=== PATIENT | male | born 1955 | race Hispanic/Latino ===

== ENCOUNTER 2018-03-31 03:50 | Emergency (ER) | payer BC ==
[2018-03-31] MEDS ORDERED: TDAP Vaccine 0.5 mL Syr IM ONE (04:24)
[2018-03-31] MEDS ORDERED: Amoxicillin-Clav 875-125 mg Tab PO STA (04:25)
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
[2018-03-31 06:31] VITALS: BMI 24.3
[2018-03-31 06:56] VITALS: BP 155/82; PULSE 89; RESP 18; TEMP 98.2; O2SAT 98
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
== END 2018-03-31 06:50 | disposition home or self-care (01) ==
LOC: ED 03:50
DX: S02.31XA Fracture of orbital floor, right side, initial encounter for closed fracture (principal); Y04.0XXA Assault by unarmed brawl or fight, initial encounter; Y92.009 Unspecified place in unspecified non-institutional (private) residence as the place of occurrence of the external cause; I10 Essential (primary) hypertension; E11.9 Type 2 diabetes mellitus without complications; E78.5 Hyperlipidemia, unspecified; I25.10 Atherosclerotic heart disease of native coronary artery without angina pectoris; Z23 Encounter for immunization

== ENCOUNTER 2018-10-29 17:19 | Inpatient (IN) | payer BC ==
[2018-10-29 17:41] VITALS: BMI 27.3
[2018-10-29] MEDS ORDERED: Sodium Chloride 0.9% 1,000 ML IV STA (18:03)
--- NOTE | 2018-10-29 18:13 | ED PDOC ---
Arrival/HPI - General Chief Complaint: Abdominal Pain Time Seen by Provider: 10/29/18 17:49 Historian: Patient - History of Present Illness Narrative History of Present Illness (Text): 10/29/18 18:08 A 63 year old male presents to the emergency department with a complaint of left abdominal pain radiating to his side. Patient reports associated back pressure, nausea, and vomiting. He reports pain is present when moving or just laying still. He reports trying to get an appointment with his PMD, but could not get an available time. The patient denies trauma, injury, fevers, chills, headache, dizziness, chest pain, shortness of breath, dyspnea on exertion, cough, diarrhea, neck pain, urinary/bowel changes, or any other complaint. PMD: Dr. Barraza/ Dr. Estrada Time/Duration: Other (Today) Symptom Onset: Sudden Symptom Course: Unchanged Activities at Onset: Rest, Light Context: Home Past Medical History - Provider Review Nursing Documentation Reviewed: Yes - Infectious Disease Hx of Infectious Diseases: None - Cardiac Hx Hypertension: Yes Hx Pacemaker: No (defib) - Neurological Hx Paralysis: No - Endocrine/Metabolic Hx Diabetes Mellitus Type 2: Yes - Hematological/Oncological Hx Blood Transfusions: No Hx Blood Transfusion Reaction: No - Musculoskeletal/Rheumatological Hx Musculoskeletal Disorders: No - Psychiatric Hx Emotional Abuse: No Hx Physical Abuse: No Hx Substance Use: No - Surgical History Hx Cardiac Catheterization: Yes Hx Coronary Stent: Yes (x1) Other/Comment: pacemaker placement - Anesthesia Hx Anesthesia Reactions: No Hx Malignant Hyperthermia: No - Suicidal Assessment Feels Threatened In Home Enviroment: No Family/Social History - Physician Review Nursing Documentation Reviewed: Yes Family/Social History: No Known Family HX Smoking Status: Never Smoked Hx Alcohol Use: Yes (SOCIAL) Frequency of alcohol use: Socially Hx Substance Use: No Allergies/Home Meds Allergies/Adverse Reactions: Allergies No Known Allergies Allergy (Verified 10/29/18 17:41) Home Medications: Home Meds Medication Instructions Recorded Confirmed Lisinopril [Zestril] 40 mg PO 10/29/18 amLODIPine [Norvasc] 5 mg 10/29/18 Review of Systems - Physician Review All systems were reviewed & negative as marked: Yes - Review of Systems Constitutional: absent: Fevers Respiratory: absent: SOB, Cough Cardiovascular: absent: Chest Pain, SINGH Gastrointestinal: Abdominal Pain, Vomiting. absent: Stool Changes, Diarrhea Genitourinary Male: absent: Urinary Output Changes Musculoskeletal: Back Pain. absent: Neck Pain Neurological: absent: Headache, Dizziness Physical Exam Vital Signs Reviewed: Yes Vital Signs Pulse Resp BP Pulse Ox 10/29/18 17:41 60 18 157/91 H 98 Blood Pressure: Hypertensive Pulse: Regular Respiratory Rate: Normal Appearance: Positive for: Well-Appearing, Non-Toxic, Comfortable Pain Distress: None Mental Status: Positive for: Alert and Oriented X 3 - Systems Exam Head: Present: Atraumatic, Normocephalic Pupils: Present: PERRL Extroacular Muscles: Present: EOMI Conjunctiva: Present: Normal Mouth: Present: Moist Mucous Membranes Neck: Present: Normal Range of Motion Respiratory/Chest: Present: Clear to Auscultation, Good Air Exchange. No: Respiratory Distress, Accessory Muscle Use Cardiovascular: Present: Regular Rate and Rhythm, Normal S1, S2. No: Murmurs Abdomen: Present: Tenderness (Right upper quadrant abdominal pain. ). No: Distention, Peritoneal Signs Back: Present: Normal Inspection Upper Extremity: Present: Normal Inspection. No: Cyanosis, Edema Lower Extremity: Present: Normal Inspection. No: Edema Neurological: Present: GCS=15, CN II-XII Intact, Speech Normal Skin: Present: Warm, Dry, Normal Color. No: Rashes Psychiatric: Present: Alert, Oriented x 3, Normal Insight, Normal Concentration Medical Decision Making ED Course and Treatment: 10/29/18 18:14 Impression: A 63 year old female presents to the emergency department with a complaint of left sided abdominal pain radiating to his side with associated nausea and vomiting. Plan: -- Abdomen/Pelvis CT -- EKG -- Chest X-Ray -- Labs -- Urinalysis -- Urine Culture -- Pepcid, Toradol, Zofran, and IV Fluids -- Reassess and disposition Prior Visits: Notes and results from previous visits were reviewed. Progress Notes: EKG: Ordered, reviewed, and independently interpreted the EKG. Rate : 60 BPM Rhythm : Paced EXAM: CT Abdomen with IV contrast Electronically signed on Oct 29, 2018 7:20:34 PM EST by: Lonnie Reynoso M.D., Certified by [facility], Diagnostic Radiology IMPRESSION: Cardiac pacer pacing wires. Approximate 1.2 x 0.7 cm obstructing calculus left proximal ureter with moderate hydronephrosis of the left kidney and left perinephric stranding. Moderately enlarged prostate gland. Urologic consultation recommended. 10/29/18 19:53: Accepted to Dr. King's service. Requests Dr. Mata for urology consult. - Lab Interpretations I have reviewed the lab results: Yes - RAD Interpretation Radiology Orders: 10/29/18 18:04 ABD & PELVIS IV CONTRAST ONLY [CT] Stat - EKG Interpretation Interpreted by ED Physician: Yes Type: 12 lead EKG - Medication Orders Current Medication Orders: Famotidine (Pepcid) 20 mg IVP STAT STA Stop: 10/29/18 18:04 Sodium Chloride (Sodium Chloride 0.9%) 1,000 mls @ 100 mls/hr IV .Q10H STA Stop: 10/30/18 04:02 Ketorolac Tromethamine (Toradol) 30 mg IVP STAT STA Stop: 10/29/18 18:04 Ondansetron HCl (Zofran Inj) 4 mg IVP STAT STA Stop: 10/29/18 18:04 - Scribe Statement The provider has reviewed the documentation as recorded by the Scribe Idalia Longoria Provider Scribe Attestation: All medical record entries made by the Scribe were at my direction and personally dictated by me. I have reviewed the chart and agree that the record accurately reflects my personal performance of the history, physical exam, medical decision making, and the department course for this patient. I have also personally directed, reviewed, and agree with the discharge instructions and disposition. Disposition/Present on Arrival - Present on Arrival Any Indicators Present on Arrival: No History of DVT/PE: No History of Uncontrolled Diabetes: No Urinary Catheter: No History of Decub. Ulcer: No History Surgical Site Infection Following: None - Disposition Have Diagnosis and Disposition been Completed?: Yes Diagnosis: Urinary tract obstruction by kidney stone Disposition: HOSPITALIZED Disposition Time: 19:40 Condition: FAIR Forms: [employer] ([place])
[2018-10-29 18:33] LABS: BASO # 0.02 K/mm3 (0.0-2.0); BASO % 0.2 % (0.0-3.0); EOS % 0.2 % (1.5-5.0); HEMOGLOBIN 14.2 g/dL (14.0-18.0); LYMPH # 0.6 (1.2-3.4); LYMPH % 5.9 % (22.0-35.0); MEAN CELL VOLUME 87.7 fl (80.0-105.0); MEAN CORPUSCULAR HEMOGLOBIN 31.1 pg (25.0-35.0); MEAN CORPUSCULAR HGB CONC 35.5 g/dl (31.0-37.0); MEAN PLATELET VOLUME 10.2 fl (7.0-11.0); MONO # 0.5 (0.1-0.6); MONO % 4.8 % (1.0-6.0); RBC 4.56 10^6/uL (3.5-6.1); RED CELL DISTRIBUTION WIDTH 14.2 % (11.5-14.5); WHITE BLOOD COUNT 10.6 10^3/uL (4.5-11.0)
[2018-10-29 18:38] LABS: ALB/GLOB RATIO 1.6 (1.1-1.8); ALT/SGPT 32 U/L (7-56); AST/SGOT 28 U/L (17-59); BLOOD UREA NITROGEN 14 mg/dL (7-21); CALCIUM 9.1 mg/dL (8.4-10.5); GFR NON-AFRICAN AMERICAN > 60; LIPASE 68 U/L (23-300)
[2018-10-29] MEDS ORDERED: Iohexol 350 MG/100 ML VIAL ONE (18:48)
[2018-10-29 18:50] LABS: TROPONIN I < 0.01 ng/mL
[2018-10-29 19:43] LABS: PH,URINE 7.5 (4.7-8.0); URINE BILIRUBIN NEGATIVE (NEGATIVE); URINE BLOOD SMALL (NEGATIVE); URINE GLUCOSE (UA) 100 mg/dL (NEGATIVE); URINE LEUKOCYTE ESTERASE NEGATIVE Leu/uL (NEGATIVE); URINE PROTEIN 30 mg/dL (<30 mg/dL); URINE UROBILINOGEN 0.2 E.U./dL (<1 E.U./dL)
[2018-10-29] MEDS ORDERED: cefTRIAXone 1 gm 1 GM/100 ML BAG IVPB STA (19:57)
[2018-10-29] MEDS ORDERED: Morphine 2 mg/ml ISec IVP STA (19:57)
[2018-10-29 20:00] LABS: URINE APPEARANCE CLEAR (CLEAR); URINE COLOR LIGHT YELLOW (YELLOW)
[2018-10-29 20:27] LABS: URINE RBC 15 - 20 /hpf (0-2)
--- NOTE | 2018-10-29 23:09 | CARD ---
APPROVED REPORT Date of service: 10/29/2018 EKG Measurement Heart [id number] <Conclusion> AV sequential or dual chamber electronic pacemaker
[2018-10-30] MEDS ORDERED: Morphine 2 mg/ml ISec IVP STA (04:56)
--- NOTE | 2018-10-30 08:39 | CP.PCM.HP ---
<Xiomy Collins - Last Filed: 10/30/18 10:30> History of Present Illness - History of Present Illness History of Present Illness: please note patient's medications have not been reconciled on chart. Patient does not know home medications. Patient's Pharmacy "[facility]" is closed on weekends and unreachable Patient's family member Belinda Gifford was contacted however phone rang through Will speak to Belinda when she comes to see patient and reconcile home meds 63yo male PMHx CAD s/p 1 stent, defibrillator, HTN, HLD, DM2, prior tobacco use quit in 2012 presents with left sided abdominal pain for 2-3 days. Patient reports he started no notice having a sharp stabbing pain that was intermitted on his left abdomen that radiated to his left flank and back at times. At worst he reported the pain was 10/10 in intensity. He described the pain in his anterior region as a sharp pain like he had "ran too fast" and the pain in his flank and back a dull pressure. The pain worsened and he had associated nausea and one episode of nonbilious nonbloody emesis. Patient reported lying down made the pain worse at times and walking around helped. He denied any changes in urination and denied any dysura, hematuria, foul odor. On ROS patient denied any feevr, chills, ehadache, dizziness, chest pain, palpitations, SOB, cough, bowel/bladder complaints, pain/swelling in his legs bilaterally. Patient reports he usually drinks a lot of water but in the past week he had not been doing so. PMHx: CAD s/p 1 stent, defibrillator, HTN, HLD, DM2, prior tobacco use PSurgHx: L eye laser Meds: pending reconciliation ALL: NKDA FamHx: noncontributory SocHx: prior tobacco use quit 2012, social EtOH, denies drug use; works as an licensed journeyman electrician PMD: Dr. Barraza/ Dr. Estrada Pharm: [facility] Present on Admission - Present on Admission Any Indicators Present on Admission: No Review of Systems - Review of Systems All systems: reviewed and no additional remarkable complaints except Review of Systems: as per HPI Past Patient History - Infectious Disease Hx of Infectious Diseases: None - Past Social History Smoking Status: Never Smoked - CARDIAC Hx Hypertension: Yes Hx Pacemaker: No (defib) - NEUROLOGICAL Hx Paralysis: No - ENDOCRINE/METABOLIC Hx Diabetes Mellitus Type 2: Yes - HEMATOLOGICAL/ONCOLOGICAL Hx Blood Transfusions: No Hx Blood Transfusion Reaction: No - MUSCULOSKELETAL/RHEUMATOLOGICAL Hx Musculoskeletal Disorders: No Hx Falls: No - PSYCHIATRIC Hx Emotional Abuse: No Hx Physical Abuse: No - SURGICAL HISTORY Hx Cardiac Catheterization: Yes Hx Coronary Stent: Yes (x1) Other/Comment: pacemaker placement - ANESTHESIA Hx Anesthesia Reactions: No Hx Malignant Hyperthermia: No Meds Allergies/Adverse Reactions: Allergies Allergy/AdvReac Type Severity Reaction Status Date / Time No Known Allergies Allergy Verified 10/29/18 17:41 Physical Exam - Constitutional Appears: Non-toxic, No Acute Distress - Head Exam Head Exam: ATRAUMATIC, NORMAL INSPECTION, NORMOCEPHALIC - Eye Exam Eye Exam: EOMI, Normal appearance, PERRL. absent: Conjunctival injection, Scleral icterus Pupil Exam: NORMAL ACCOMODATION - ENT Exam ENT Exam: Mucous Membranes Moist - Neck Exam Neck exam: Positive for: Full Rom, Normal Inspection. Negative for: Lymphadenopathy - Respiratory Exam Respiratory Exam: Clear to Auscultation Bilateral, NORMAL BREATHING PATTERN. ab sent: Accessory Muscle Use, Rales, Rhonchi, Wheezes, Respiratory Distress - Cardiovascular Exam Cardiovascular Exam: REGULAR RHYTHM, +S1, +S2 - GI/Abdominal Exam GI & Abdominal Exam: Normal Bowel Sounds, Soft, Tenderness (L upper ). absent: Distended, Firm, Guarding, Rigid - Rectal Exam Rectal Exam: Deferred - Extremities Exam Extremities exam: Positive for: normal capillary refill, normal inspection, pedal pulses present. Negative for: pedal edema - Back Exam Back exam: CVA tenderness (L), NORMAL INSPECTION. absent: rash noted - Neurological Exam Neurological exam: Alert, CN II-XII Intact, Normal Gait, Oriented x3 - Psychiatric Exam Psychiatric exam: Normal Affect, Normal Mood - Skin Skin Exam: Dry, Intact, Normal Color, Warm Results - Vital Signs Recent Vital Signs: Last Vital Signs Temp 99 F 10/30/18 07:59 Pulse 67 10/30/18 07:59 Resp 20 10/30/18 07:59 BP 142/82 10/30/18 07:59 Pulse Ox 97 10/30/18 07:59 - Labs Result Diagrams: 10/29/18 18:24 10/29/18 18:24 Labs: Laboratory Results - last 24 hr 10/29/18 10/29/18 10/29/18 18:24 18:24 19:38 WBC 10.6 RBC 4.56 Hgb 14.2 Hct 40.0 L MCV 87.7 MCH 31.1 MCHC 35.5 RDW 14.2 Plt Count 172 MPV 10.2 Neut % (Auto) 88.9 H Lymph % (Auto) 5.9 L [place] % (Auto) 4.8 Eos % (Auto) 0.2 L Baso % (Auto) 0.2 Lymph # (Auto) 0.6 L [place] # (Auto) 0.5 Eos # (Auto) 0.0 Baso # (Auto) 0.02 Absolute Neuts (auto) 9.44 H Sodium 138 Potassium 4.1 Chloride 99 Carbon Dioxide 29 Anion Gap 14 BUN 14 Creatinine 0.9 Est GFR ( Amer) > 60 Est GFR (Non-Af Amer) > 60 Random Glucose 177 H Calcium 9.1 Magnesium 1.7 Total Bilirubin 1.0 AST 28 ALT 32 Alkaline Phosphatase 86 Lactate Dehydrogenase 562 Total Creatine Kinase 104 Troponin I < 0.01 Total Protein 8.1 Albumin 5.0 H Globulin 3.1 Albumin/Globulin Ratio 1.6 Lipase 68 Urine Color Light yellow Urine Appearance Clear Urine pH 7.5 Ur Specific [place] 1.020 Urine Protein 30 H Urine Glucose (UA) 100 H Urine Ketones 15 H Urine Blood Small H Urine Nitrate Negative Urine Bilirubin Negative Urine Urobilinogen 0.2 Ur Leukocyte Esterase Negative Urine RBC 15 - 20 H Urine WBC 5 - 10 H Ur Epithelial Cells 6 - 8 H Assessment & Plan - Assessment and Plan (Free Text) Assessment: 1. L sided nephrolithiasis with hydronephrosis 2. CAD s/p 1 stent 3. Defibrillator 4. HTN 5. HLD 6. DM2 7. Pain control 8. Prior tobacco use Plan: Patient admitted to med/surg for further management. CT Abd/pelvis revealed 10 x 7.5mm calculus at the proximmal left ureter resulting in moderate L hydronep hrosis and moderate L peinephric stranding; Mild delayed enhancement of the L renal cortex. Urology Dr. Mata consulted. Overnight patient admitted to some pain which is controlled with morphine. Patient started on Morphine 2q6 for severe pain and Morphien 1q4 for moderate pain. Patient also started on fluids NS@100cc/hr and has been told to strain his urine. Patient has an extensive cardiac history however does not know which medications he is on and pharmacy is unavailable over the weekend. I have reached out to family member Belinda Gifford and am waiting to hear back to reconcile home medications. Will continue patient's Norvasc and Lisinopril at this time for HTN and Lipitor for HLD. I h ave also started patient on RISS low with accuchecks achs due to his history of DM2. Will f/u HgbA1c and Lipid panel in the AM. Pending urine culture and urology reccs. EKG reviewed and CXR ordered for pre-op risk stratification. DVT ppx in place and patient has a HHD with [facility]. Will continue to monitor closely at this time. Discussed with Dr. Christine Collins PGY3 <Rito King S - Last Filed: 10/30/18 11:56> Results - Vital Signs Recent Vital Signs: Last Vital Signs Temp 99 F 10/30/18 07:59 Pulse 67 10/30/18 09:53 Resp 20 10/30/18 07:59 BP 140/82 10/30/18 09:53 Pulse Ox 97 10/30/18 07:59 - Labs Result Diagrams: 10/29/18 18:24 10/29/18 18:24 Labs: Laboratory Results - last 24 hr 10/29/18 10/29/18 10/29/18 18:24 18:24 19:38 WBC 10.6 RBC 4.56 Hgb 14.2 Hct 40.0 L MCV 87.7 MCH 31.1 MCHC 35.5 RDW 14.2 Plt Count 172 MPV 10.2 Neut % (Auto) 88.9 H Lymph % (Auto) 5.9 L [place] % (Auto) 4.8 Eos % (Auto) 0.2 L Baso % (Auto) 0.2 Lymph # (Auto) 0.6 L [place] # (Auto) 0.5 Eos # (Auto) 0.0 Baso # (Auto) 0.02 Absolute Neuts (auto) 9.44 H Sodium 138 Potassium 4.1 Chloride 99 Carbon Dioxide 29 Anion Gap 14 BUN 14 Creatinine 0.9 Est GFR ( Amer) > 60 Est GFR (Non-Af Amer) > 60 POC Glucose (mg/dL) Random Glucose 177 H Calcium 9.1 Magnesium 1.7 Total Bilirubin 1.0 AST 28 ALT 32 Alkaline Phosphatase 86 Lactate Dehydrogenase 562 Total Creatine Kinase 104 Troponin I < 0.01 Total Protein 8.1 Albumin 5.0 H Globulin 3.1 Albumin/Globulin Ratio 1.6 Lipase 68 Urine Color Light yellow Urine Appearance Clear Urine pH 7.5 Ur Specific [place] 1.020 Urine Protein 30 H Urine Glucose (UA) 100 H Urine Ketones 15 H Urine Blood Small H Urine Nitrate Negative Urine Bilirubin Negative Urine Urobilinogen 0.2 Ur Leukocyte Esterase Negative Urine RBC 15 - 20 H Urine WBC 5 - 10 H Ur Epithelial Cells 6 - 8 H 10/30/18 10:59 WBC RBC Hgb Hct MCV MCH MCHC RDW Plt Count MPV Neut % (Auto) Lymph % (Auto) [place] % (Auto) Eos % (Auto) Baso % (Auto) Lymph # (Auto) [place] # (Auto) Eos # (Auto) Baso # (Auto) Absolute Neuts (auto) Sodium Potassium Chloride Carbon Dioxide Anion Gap BUN Creatinine Est GFR ( Amer) Est GFR (Non-Af Amer) POC Glucose (mg/dL) 203 H Random Glucose Calcium Magnesium Total Bilirubin AST ALT Alkaline Phosphatase Lactate Dehydrogenase Total Creatine Kinase Troponin I Total Protein Albumin Globulin Albumin/Globulin Ratio Lipase Urine Color Urine Appearance Urine pH Ur Specific Em[place] Urine Protein Urine Glucose (UA) Urine Ketones Urine Blood Urine Nitrate Urine Bilirubin Urine Urobilinogen Ur Leukocyte Esterase Urine RBC Urine WBC Ur Epithelial Cells Assessment & Plan - Assessment and Plan (Free Text) Plan: Pt seen and examined by me. I have reviewed the note of the medical secretary receptionist and I agree with it. I have discussed the assessment and plan with the resident. I have reviewed the medications and the last labs. The pt has L flank pain due to a renal stone that is 1 x 7.5 cm. It is unlikely to pass and he will need a stent by urology. Dr Mata has been consulted. I explained to the pt the need for the treatment and he understands. He has not had a stone in the past. He is on Morphine for pain which is controlled. He has hydronephrosis and has pe rinephric stranding, most likely with infection. He has been started on IV Abx. He vito be on Lisinopril and Norvasc for HTN. He is on Lipitor for dyslipidemia. He has CAD and DM-2. Will need continued treatment for these conditions. Insulin coverage. UCx are pending. Spoke to him about increasing fluids and decreasing Na intake to help prevent stones.
--- NOTE | 2018-10-30 10:28 | CT ---
Date of service: 10/29/2018 PROCEDURE: CT Abdomen and Pelvis with contrast HISTORY: left-sided abdominal tenderness COMPARISON: No prior similar exam available for comparison. TECHNIQUE: Contrast dose: 96 mL of Omnipaque 350 intravenously. Radiation dose: Total exam DLP = 552.74 mGy-cm. This CT exam was performed using one or more of the following dose reduction techniques: Automated exposure control, adjustment of the mA and/or kV according to patient size, and/or use of iterative reconstruction technique. FINDINGS: LOWER THORAX: The heart is mildly enlarged. Cardiac pacer wires are noted. There is small hiatus hernia. LIVER: The liver is mildly enlarged mildly heterogeneous likely due to mild hepatic steatosis. GALLBLADDER AND BILE DUCTS: Unremarkable. PANCREAS: Unremarkable. No gross lesion or ductal dilatation. SPLEEN: Unremarkable. ADRENALS: Unremarkable. No mass. KIDNEYS AND URETERS: There is moderate left hydronephrosis up to 10 x 7.5 millimeter calculus at the UV junction/proximal left ureter. Moderate left perinephric stranding noted. VASCULATURE: Unremarkable. No aortic aneurysm. No aortic atherosclerotic calcification or mural plaque present. BOWEL: Colonic diverticulosis are noted without evidence of diverticulitis. No obstruction. No gross mural thickening. APPENDIX: Normal appendix. PERITONEUM: Unremarkable. No free fluid. No free air. LYMPH NODES: Unremarkable. No enlarged lymph nodes. BLADDER: Mildly distended urinary bladder demonstrate mild wall thickening. REPRODUCTIVE: Heterogeneous moderately enlarged prostate. BONES: No acute fracture. OTHER FINDINGS: None. IMPRESSION: 10 x 7.5 millimeter calculus at the proximal left ureter resulting in moderate left hydronephrosis and moderate left perinephric stranding. Mild delayed enhancement of the left renal cortex noted. Additional findings as discussed above. Preliminary report was submitted by [facility] contains concordant findings.
[2018-10-30] MEDS: Morphine 2 mg/ml ISec IVP PRN ×4 (10:53→22:09)
[2018-10-30] MEDS: Insulin Lispro (humaLOG) LOW Coverage SC SCH ×3 (11:54→23:00)
[2018-10-30] MEDS: cefTRIAXone 1 gm 1 GM/100 ML BAG IVPB SCH (12:38)
[2018-10-30 13:30] LABS: INR 1.06; PARTIAL THROMBOPLASTIN TIME 32.1 Seconds (26.9-38.3)
--- NOTE | 2018-10-30 14:09 | RAD ---
Date of service: 10/30/2018 HISTORY: preOP COMPARISON: Comparison is made with 06/01/2013 TECHNIQUE: Chest PA and lateral FINDINGS: LUNGS: No active pulmonary disease. PLEURA: No significant pleural effusion identified. No pneumothorax apparent. CARDIOVASCULAR: No aortic atherosclerotic calcification present. Normal cardiac size. Left-sided pacemaker is seen in place OSSEOUS STRUCTURES: No significant abnormalities. VISUALIZED UPPER ABDOMEN: Normal. OTHER FINDINGS: None. IMPRESSION: No active disease.
--- NOTE | 2018-10-30 18:03 | RAD ---
Date of service: 10/30/2018 HISTORY: stone kidney COMPARISON: None available. FINDINGS: BOWEL: Normal. No obstruction. No free air. Mildly dilated bowel loops noted in the abdomen and pelvis. BONES: Normal. OTHER FINDINGS: There is contrast in the collecting system of the left kidney noted. Findings consistent with left ureter obstruction previously also noted in the CT dated 10/29/2018 IMPRESSION: [id number] left hydronephrosis with retention of the contrast in the collecting system of the left kidney.
[2018-10-30] MEDS: Sodium Chloride 0.9% 1,000 ML IV SCH ×2 (18:31→23:04)
[2018-10-31] MEDS: Morphine 2 mg/ml ISec IVP PRN ×5 (01:20→23:23)
[2018-10-31] MEDS: Sodium Chloride 0.9% 1,000 ML IV SCH ×2 (06:58→17:04)
--- NOTE | 2018-10-31 07:03 | CP.PCM.PN ---
<KarinaXiomy - Last Filed: 10/31/18 07:53> Subjective - Date & Time of Evaluation Date of Evaluation: 10/31/18 Time of Evaluation: 07:00 - Subjective Subjective: Pgy3 Medicine Progress note for Dr. King Patient seen and examined at bedside. Overnight patient complained of pain and nursing stated the morphine was not abating his pain. Patient was unable to sleep well as he sleeps on his stomach and was unable to because of the pain in his left flank. Patient reports the pain is now more in his left flank and left back more than his stomach and is intermittent in nature. Patient did complain o f nausea and was given Zofran by RN. Denied other acute complaints fever, chills, headache, dizziness, chest pain, palpitations, SOB, cough, vomiting, bowel/bladder complaints, pain/swelling in his legs b/l. Objective - Vital Signs/Intake and Output Vital Signs (last 24 hours): Temp Pulse Resp BP Pulse Ox 97.8 F 65 16 144/78 95 10/30/18 21:55 10/30/18 21:55 10/30/18 21:55 10/30/18 21:55 10/30/18 21:55 Intake and Output: 10/31/18 10/31/18 06:59 18:59 Intake Total 1800 Output Total 700 Balance 1100 - Medications Medications: Current Medications Amlodipine Besylate (Norvasc) 5 mg PO DAILY [facility] Last Admin: 10/30/18 09:53 Dose: 5 mg Atorvastatin Calcium (Lipitor) 20 mg PO DIN [facility] Last Admin: 10/30/18 17:38 Dose: 20 mg Carvedilol (Coreg) 25 mg PO BID [facility] Last Admin: 10/30/18 17:37 Dose: 25 mg Escitalopram Oxalate (Lexapro) 10 mg PO DAILY [facility] Sodium Chloride (Sodium Chloride 0.9%) 1,000 mls @ 100 mls/hr IV .Q10H [facility] Last Admin: 10/31/18 06:58 Dose: Not Given Ceftriaxone Sodium (Rocephin 1 Gram Ivpb) 1 gm in 100 mls @ 100 mls/hr IVPB DAILY [facility]; Protocol Last Admin: 10/30/18 12:38 Dose: 100 mls/hr Insulin Human Lispro (Humalog Low) 0 units SC ACHS [facility]; Protocol Last Admin: 10/30/18 23:00 Dose: Not Given Lisinopril (Zestril) 40 mg PO DAILY [facility] Last Admin: 10/30/18 09:53 Dose: 40 mg Morphine Sulfate (Morphine) 2 mg IVP Q6H PRN PRN Reason: Pain, severe (8-10) Last Admin: 10/31/18 01:20 Dose: 2 mg Morphine Sulfate (Morphine) 1 mg IVP Q4H PRN PRN Reason: Pain, moderate (4-7) Last Admin: 10/31/18 03:56 Dose: 1 mg [id number] Ethyl Esters (Lovaza) 1 gm PO DAILY [facility] Ondansetron HCl (Zofran Inj) 4 mg IVP Q8 PRN PRN Reason: Nausea/Vomiting Last Admin: 10/30/18 22:09 Dose: 4 mg Tamsulosin HCl (Flomax) 0.4 mg PO DAILY [facility] Last Admin: 10/30/18 12:37 Dose: 0.4 mg - Labs Labs: 10/29/18 18:24 10/29/18 18:24 PT 12.0 SECONDS (9.4-12.5) 10/30/18 13:00 INR 1.06 10/30/18 13:00 APTT 32.1 Seconds (26.9-38.3) 10/30/18 13:00 - Additional Findings Additional findings: - Constitutional Appears: Non-toxic, No Acute Distress - Head Exam Head Exam: ATRAUMATIC, NORMAL INSPECTION, NORMOCEPHALIC - Eye Exam Eye Exam: EOMI, Normal appearance, PERRL. absent: Conjunctival injection, Sc leral icterus Pupil Exam: NORMAL ACCOMODATION - ENT Exam ENT Exam: Mucous Membranes Moist - Neck Exam Neck exam: Positive for: Full Rom, Normal Inspection. Negative for: Lymphadenopathy - Respiratory Exam Respiratory Exam: Clear to Auscultation Bilateral, NORMAL BREATHING PATTERN. absent: Accessory Muscle Use, Rales, Rhonchi, Wheezes, Respiratory Distress - Cardiovascular Exam Cardiovascular Exam: REGULAR RHYTHM, +S1, +S2 - GI/Abdominal Exam GI & Abdominal Exam: Normal Bowel Sounds, Soft, Tenderness (L upper ). absent: Distended, Firm, Guarding, Rigid - Rectal Exam Rectal Exam: Deferred - Extremities Exam Extremities exam: Positive for: normal capillary refill, normal inspection, pedal pulses present. Negative for: pedal edema - Back Exam Back exam: CVA tenderness (L), NORMAL INSPECTION. absent: rash noted - Neurological Exam Neurological exam: Alert, CN II-XII Intact, Normal Gait, Oriented x3 - Psychiatric Exam Psychiatric exam: Normal Affect, Normal Mood - Skin Skin Exam: Dry, Intact, Normal Color, Warm Assessment and Plan - Assessment and Plan (Free Text) Assessment: 1. L sided nephrolithiasis with hydronephrosis 2. CAD s/p 1 stent 3. Defibrillator 4. HTN 5. HLD 6. DM2 7. Pain control 8. Prior tobacco use 9. Depression/Anxiety Plan: Patient's vitals, blood work, and imaging reviewed in chart. CT Abd/pelvis revealed 10 x 7.5mm calculus at the proximal left ureter resulting in moderate L hydronephrosis and moderate L peinephric stranding; Mild delayed enhancement of the L renal cortex. Pain regimen adjusted to Morphine 4q6, for severe pain and Morphine 2q4 for moderate pain. Patient on fluids NS@100cc/hr, Flomax and has been told to strain his urine. Rocephin on board. Patient started on home medications Norvasc 5, Lisinopril 40 and Coreg 25 for HTN. Patient's eliquis and aspirin for CAD on hold at this time as patient for OR today. Patient's Lipitor and Lovaza continued for HLD. Patient on Accuchecks and RISS low for DM2. Patient continued on Lexapro for his depresson/anxiety which is stable at this time. Pending urine culture. EKG reviewed and CXR unremarkable. Abd x-ray mild to moderate L hydronephrosis with retention of contrast in collection system of the left kidney. Urology Dr. Mtaa on board and patient scheduled for OR for cystoscopy and stent at noon today pending cardiac clearance. Discussed with Dr. Christine Collins PGY3 <Rito King S - Last Filed: 10/31/18 12:25> Objective - Vital Signs/Intake and Output Vital Signs (last 24 hours): Temp Pulse Resp BP Pulse Ox 98.2 F 76 20 128/80 96 10/31/18 07:00 10/31/18 09:17 10/31/18 07:00 10/31/18 09:17 10/31/18 07:00 Intake and Output: 10/31/18 10/31/18 06:59 18:59 Intake Total 4200 Output Total 700 Balance 3500 - Medications Medications: Current Medications Amlodipine Besylate (Norvasc) 5 mg PO DAILY [facility] Last Admin: 10/31/18 09:17 Dose: 5 mg Atorvastatin Calcium (Lipitor) 20 mg PO DIN [facility] Last Admin: 10/30/18 17:38 Dose: 20 mg Carvedilol (Coreg) 25 mg PO BID [facility] Last Admin: 10/31/18 09:15 Dose: 25 mg Escitalopram Oxalate (Lexapro) 10 mg PO DAILY [facility] Last Admin: 10/31/18 10:49 Dose: Not Given Sodium Chloride (Sodium Chloride 0.9%) 1,000 mls @ 100 mls/hr IV .Q10H [facility] Last Admin: 10/31/18 06:58 Dose: Not Given Ceftriaxone Sodium (Rocephin 1 Gram Ivpb) 1 gm in 100 mls @ 100 mls/hr IVPB DAILY [facility]; Protocol Last Admin: 10/31/18 09:18 Dose: 100 mls/hr Insulin Human Lispro (Humalog Low) 0 units SC ACHS [facility]; Protocol Last Admin: 10/31/18 07:38 Dose: Not Given Lisinopril (Zestril) 40 mg PO DAILY [facility] Last Admin: 10/31/18 09:17 Dose: 40 mg Morphine Sulfate (Morphine) 4 mg IVP Q6H PRN PRN Reason: Pain, severe (8-10) Morphine Sulfate (Morphine) 2 mg IVP Q4H PRN PRN Reason: Pain, moderate (4-7) [id number] Ethyl Esters (Lovaza) 1 gm PO DAILY [facility] Last Admin: 10/31/18 10:49 Dose: Not Given Ondansetron HCl (Zofran Inj) 4 mg IVP Q8 PRN PRN Reason: Nausea/Vomiting Last Admin: 10/30/18 22:09 Dose: 4 mg Tamsulosin HCl (Flomax) 0.4 mg PO DAILY [facility] Last Admin: 10/31/18 10:49 Dose: Not Given - Labs Labs: 10/31/18 07:30 10/31/18 07:30 PT 12.0 SECONDS (9.4-12.5) 10/30/18 13:00 INR 1.06 10/30/18 13:00 APTT 32.1 Seconds (26.9-38.3) 10/30/18 13:00 Assessment and Plan - Assessment and Plan (Free Text) Plan: Pt seen and examined by me. I have reviewed the note of the chief medical technologist and I agree with it. I have discussed the assessment and plan with the resident. I have reviewed the medications and the last labs. Pt with L kidney nephrolithiasis with hydronephrosis. He is going to the OR today. Cardio on consult for preop evaluation. Pain is not well controlled and he will have his Morphine increased to 4 mg. He is on Norvasc and Lisinopril for HTN. ASA is on hold and he is taking this for his CAD. DM-2 controlled with fs and ISS. Lexapro for anxiety and depression. He is on Flomax and IVF for his stones.
[2018-10-31] MEDS: Insulin Lispro (humaLOG) LOW Coverage SC SCH ×3 (07:38→22:50)
[2018-10-31] MEDS ORDERED: Morphine 4 mg/ml ISec IVP PRN (07:54)
[2018-10-31 07:58] LABS: BASO # 0.01 K/mm3 (0.0-2.0); BASO % 0.1 % (0.0-3.0); EOS % 0.4 % (1.5-5.0); HEMOGLOBIN 12.3 g/dL (14.0-18.0); LYMPH # 0.7 (1.2-3.4); LYMPH % 8.3 % (22.0-35.0); MEAN CELL VOLUME 88.6 fl (80.0-105.0); MEAN CORPUSCULAR HEMOGLOBIN 30.4 pg (25.0-35.0); MEAN CORPUSCULAR HGB CONC 34.3 g/dl (31.0-37.0); MEAN PLATELET VOLUME 10.4 fl (7.0-11.0); MONO # 0.8 (0.1-0.6); MONO % 10.6 % (1.0-6.0); RBC 4.05 10^6/uL (3.5-6.1); RED CELL DISTRIBUTION WIDTH 13.9 % (11.5-14.5); WHITE BLOOD COUNT 7.9 10^3/uL (4.5-11.0)
[2018-10-31 08:04] LABS: ALB/GLOB RATIO 1.5 (1.1-1.8); ALT/SGPT 26 U/L (7-56); AST/SGOT 17 U/L (17-59); BLOOD UREA NITROGEN 14 mg/dL (7-21); CALCIUM 8.3 mg/dL (8.4-10.5); GFR NON-AFRICAN AMERICAN 52; HDL CHOLESTEROL 35 mg/dL (29-60)
[2018-10-31 08:15] LABS: LDL CHOLESTEROL 86 mg/dL (0-129)
[2018-10-31 08:19] LABS: FREE T4 0.76 ng/dL (0.78-2.19)
[2018-10-31] MEDS ORDERED: Potassium Chloride 20 mEq ER Tab PO ONE (08:34)
[2018-10-31] MEDS: cefTRIAXone 1 gm 1 GM/100 ML BAG IVPB SCH (09:18)
[2018-10-31] MEDS: Omega-3-Acid Ethyl Esters 1 GM Cap PO SCH (10:49)
[2018-10-31] MEDS ORDERED: Lidocaine 2% Jelly (Uro-Jet) ONE (12:34)
[2018-10-31] MEDS ORDERED: Iohexol 240 (50 ml) ONE (12:34)
[2018-10-31] MEDS ORDERED: Propofol 10 mg/ml Inj (20 ML) ONE (12:52)
[2018-10-31] MEDS ORDERED: HYDROmorphone 0.5 mg/0.5 ml ISec IVP PRN (13:41)
[2018-10-31] MEDS ORDERED: Lactated Ringer's 1,000 ML IV SCH (13:45)
[2018-10-31] MEDS ORDERED: Magnesium Citrate Oral SOL (300 ml) PO ONE (14:06)
--- NOTE | 2018-10-31 14:39 | CON ---
DATE OF CONSULTATION: 10/31/2018 REQUESTING PHYSICIAN: Rito King MD REASON FOR CONSULTATION: Preoperative cardiac evaluation. HISTORY: This is a 63-year-old man with known coronary artery disease, prior PCI, left trigger dysfunction and an ICD in place, who presented with flank pain and was found to have nephrolithiasis. Stone retrieval and stent placement is being contemplated. Preoperative cardiac assessment was requested. He does have coronary artery disease and underwent stenting of an obtuse marginal branch by Dr. Quarles in 2012. Since that time, he has been followed by Dr. Morales at [facility]. He does have a history of left ventricular dysfunction and had a defibrillator placed at some point in time. He has had no recent firings, but did have some inappropriate firings in the past for atrial fibrillation. His defibrillator is monitored by Dr. Amador. He apparently also underwent an atrial fibrillation ablation in the past. He states he has not had a followup stress test performed in many years. He states that the left ventricular function is reportedly improved. He denies any recent chest pain or dyspnea. PAST HISTORY: Notable for the problems mentioned above. He does have a history of hypertension and diabetes. FAMILY HISTORY: Unremarkable for premature heart disease. SOCIAL HISTORY: Does not smoke or drink. CURRENT MEDICATIONS: Carvedilol 25 mg b.i.d., Flomax, insulin coverage, Lexapro 10 mg daily, Lipitor 20 mg daily, amlodipine 5 mg daily, Rocephin, Zestril 40 mg daily. He had also been on Eliquis, but this was withheld as of 3 days ago. ALLERGIES: NONE. REVIEW OF SYSTEMS: A 10-point review of systems was otherwise unremarkable. PHYSICAL EXAMINATION: GENERAL: He is a fairly healthy-appearing middle-aged man. VITAL SIGNS: His blood pressure is 128/80 with a pulse of 76. Respirations are 16. He is afebrile. HEENT: Normocephalic, atraumatic. NECK: Supple. No JVD noted. CHEST: Few scattered rhonchi heard. HEART: PMI displaced laterally with a soft systolic murmur in the lower left sternal border. ABDOMEN: Soft and nontender with normoactive bowel sounds. EXTREMITIES: No clubbing, cyanosis, or edema. SKIN: Warm and dry. PSYCHIATRIC: Normal mood and affect. NEUROLOGIC: Alert and oriented x3. No gross motor or sensory deficits present. DIAGNOSTIC DATA: Potassium 3.5, BUN and creatinine are 14 and 1.4, glucose 151. White count 7.9, hemoglobin and hematocrit 12.3 and 35.9 with a platelet count 131,000. TSH 0.82. Electrocardiogram reveals a dual chamber pacing. Chest x-ray reveals normal cardiac silhouette with a defibrillator placed, clear lung bae. IMPRESSION: 1. Known coronary artery disease, status post remote PCI, appears clinically stable at the present time. 2. Left ventricular dysfunction, appears well compensated. 3. Status post ICD implant. 4. Nephrolithiasis, in need of a urologic intervention. PLAN: From a cardiac standpoint, he appears stable to proceed with this. His risk appears average for this procedure. No specific precautions appear necessary. Eliquis can be withheld until there is no evidence of hematuria. He was encouraged to arrange for an outpatient stress test in the future for some balance purposes. Thank you for this consultation. We will be happy to see in the future as needed. Kelvin Londono MD
[2018-10-31 15:46] LABS: HEMOGLOBIN 13.2 g/dL (14.0-18.0); MEAN CORPUSCULAR HEMOGLOBIN 30.8 pg (25.0-35.0); MEAN CORPUSCULAR HGB CONC 34.3 g/dl (31.0-37.0); MEAN PLATELET VOLUME 9.8 fl (7.0-11.0); RBC 4.28 10^6/uL (3.5-6.1); RED CELL DISTRIBUTION WIDTH 14.1 % (11.5-14.5); WHITE BLOOD COUNT 7.6 10^3/uL (4.5-11.0)
--- NOTE | 2018-10-31 18:10 | RAD ---
Date of service: 10/31/2018 PROCEDURE: Fluoroscopic guidance HISTORY: R/O ureter stone. Left hydronephrosis left proximal ureter stone COMPARISON: Comparison is made to the previous CT dated 10/29/2018 TECHNIQUE: Fluoroscopic guidance was provided. Total exam time 27.6 second. Cumulative dose 7.86 MGy FINDINGS: Fluoroscopic guidance was providing during retrograde pyelogram and insertion of left ureter stent under fluoroscopic guidance. IMPRESSION: Fluoroscopic guidance as discussed above.
--- NOTE | 2018-10-31 21:46 | PCM.URO ---
Urology Progress Note - Subjective Other: full notes are dictated. stent placed today. will consider uretroscopy /laser on thursday or out pt eswl - Objective Lab Results Last 24 Hours: Laboratory Results - last 24 hr 10/30/18 10/31/18 10/31/18 21:17 06:46 07:30 WBC 7.9 D RBC 4.05 Hgb 12.3 L Hct 35.9 L MCV 88.6 MCH 30.4 MCHC 34.3 RDW 13.9 Plt Count 131 MPV 10.4 Neut % (Auto) 80.6 H Lymph % (Auto) 8.3 L [place] % (Auto) 10.6 H Eos % (Auto) 0.4 L Baso % (Auto) 0.1 Lymph # (Auto) 0.7 L [place] # (Auto) 0.8 H Eos # (Auto) 0.0 Baso # (Auto) 0.01 Absolute Neuts (auto) 6.38 Sodium Potassium Chloride Carbon Dioxide Anion Gap BUN Creatinine Est GFR ( Amer) Est GFR (Non-Af Amer) POC Glucose (mg/dL) 166 H 163 H Random Glucose Hemoglobin A1c Calcium Phosphorus Magnesium Total Bilirubin AST ALT Alkaline Phosphatase Total Protein Albumin Globulin Albumin/Globulin Ratio Triglycerides Cholesterol LDL Cholesterol Direct HDL Cholesterol Free T4 TSH 3rd Generation 10/31/18 10/31/18 10/31/18 07:30 07:30 07:30 WBC RBC Hgb Hct MCV MCH MCHC RDW Plt Count MPV Neut % (Auto) Lymph % (Auto) [place] % (Auto) Eos % (Auto) Baso % (Auto) Lymph # (Auto) [place] # (Auto) Eos # (Auto) Baso # (Auto) Absolute Neuts (auto) Sodium 136 Potassium 3.5 L Chloride 100 Carbon Dioxide 30 Anion Gap 11 BUN 14 Creatinine 1.4 Est GFR ( Amer) > 60 Est GFR (Non-Af Amer) 52 POC Glucose (mg/dL) Random Glucose 151 H Hemoglobin A1c 7.5 H Calcium 8.3 L Phosphorus 3.1 Magnesium 1.9 Total Bilirubin 0.8 AST 17 D ALT 26 Alkaline Phosphatase 63 Total Protein 6.8 Albumin 4.0 Globulin 2.7 Albumin/Globulin Ratio 1.5 Triglycerides 160 Cholesterol 146 LDL Cholesterol Direct 86 HDL Cholesterol 35 Free T4 0.76 L TSH 3rd Generation 0.82 10/31/18 10/31/18 10/31/18 12:02 13:51 15:35 WBC 7.6 RBC 4.28 Hgb 13.2 L Hct 38.5 L MCV 90.0 MCH 30.8 MCHC 34.3 RDW 14.1 Plt Count 138 MPV 9.8 Neut % (Auto) Lymph % (Auto) [place] % (Auto) Eos % (Auto) Baso % (Auto) Lymph # (Auto) [place] # (Auto) Eos # (Auto) Baso # (Auto) Absolute Neuts (auto) Sodium Potassium Chloride Carbon Dioxide Anion Gap BUN Creatinine Est GFR ( Amer) Est GFR (Non-Af Amer) POC Glucose (mg/dL) 165 H 167 H Random Glucose Hemoglobin A1c Calcium Phosphorus Magnesium Total Bilirubin AST ALT Alkaline Phosphatase Total Protein Albumin Globulin Albumin/Globulin Ratio Triglycerides Cholesterol LDL Cholesterol Direct HDL Cholesterol Free T4 TSH 3rd Generation Intake & Output: Intake & Output 10/31/18 10/31/18 11/01/18 06:59 18:59 06:59 Intake Total 4200 Output Total 700 Balance 3500 Intake: IV 3300 Right Antecubital 3300 Oral 900 Output: Urine 700 Urine, Voided 700 Other: # Voids Urine, Voided 6 2 # Bowel Movements 0 Vital Signs: Vital Signs - 24 hr 10/30/18 10/31/18 10/31/18 21:55 07:00 09:15 Temperature 97.8 F 98.2 F Pulse Rate 65 76 76 Respiratory 16 20 Rate Blood Pressure 144/78 128/80 128/80 O2 Sat by Pulse 95 96 Oximetry 10/31/18 10/31/18 10/31/18 09:17 13:36 13:51 Temperature 98.1 F 98.1 F Pulse Rate 76 69 64 Respiratory 16 16 Rate Blood Pressure 128/80 132/67 125/72 O2 Sat by Pulse 96 99 Oximetry 10/31/18 10/31/18 10/31/18 14:00 14:06 14:21 Temperature 97.8 F 98.1 F 98.1 F Pulse Rate 77 60 60 Respiratory 18 16 16 Rate Blood Pressure 105/79 132/74 139/77 O2 Sat by Pulse 96 94 L 94 L Oximetry 10/31/18 10/31/18 14:36 17:03 Temperature 98.1 F Pulse Rate 60 70 Respiratory 16 Rate Blood Pressure 147/76 149/64 O2 Sat by Pulse 97 Oximetry
--- NOTE | 2018-11-01 05:41 | CP.PCM.PN ---
<Xiomy Collins - Last Filed: 11/01/18 13:22> Subjective - Date & Time of Evaluation Date of Evaluation: 11/01/18 Time of Evaluation: 06:15 - Subjective Subjective: Pgy3 Medicine Progress note for Dr. King Patient seen and examined at bedside. Patient is POD#1 cystoscopy and L pigtail stent placement. Patient tolerated procedure well. Pain overnight was controlled and this AM patient reported pain 7-8/10 at its worse and intermittent in nature. Patient pain is located more in the left flank than in the abdomen today. Patient was concerned of having some minimal clots in his bedside urinal. Patient denied other complaints fever, chills, headache, dizziness, chest pain, palpitations, SOB, cough, nausea, vomiting, bowel complaints, pain/swelling in legs bilaterally. Objective - Vital Signs/Intake and Output Vital Signs (last 24 hours): Temp Pulse Resp BP Pulse Ox 97.6 F 61 20 119/68 95 10/31/18 21:51 10/31/18 21:51 10/31/18 21:51 10/31/18 21:51 10/31/18 21:51 - Medications Medications: Current Medications Amlodipine Besylate (Norvasc) 5 mg PO DAILY [facility] Last Admin: 10/31/18 09:17 Dose: 5 mg Atorvastatin Calcium (Lipitor) 20 mg PO DIN [facility] Last Admin: 10/31/18 17:03 Dose: 20 mg Carvedilol (Coreg) 25 mg PO BID [facility] Last Admin: 10/31/18 17:03 Dose: 25 mg Escitalopram Oxalate (Lexapro) 10 mg PO DAILY [facility] Last Admin: 10/31/18 10:49 Dose: Not Given Hydromorphone HCl (Dilaudid) 0.5 mg IVP Q15M PRN PRN Reason: Other Sodium Chloride (Sodium Chloride 0.9%) 1,000 mls @ 100 mls/hr IV .Q10H [facility] Last Admin: 10/31/18 17:04 Dose: Not Given Ceftriaxone Sodium (Rocephin 1 Gram Ivpb) 1 gm in 100 mls @ 100 mls/hr IVPB DAILY [facility]; Protocol Last Admin: 10/31/18 09:18 Dose: 100 mls/hr Gentamicin Sulfate 60 mg/ (Sodium Chloride) 101.5 mls @ 100 mls/hr IVPB Q8H [facility]; Protocol Last Admin: 10/31/18 22:16 Dose: 100 mls/hr Insulin Human Lispro (Humalog Low) 0 units SC ACHS [facility]; Protocol Last Admin: 10/31/18 22:50 Dose: Not Given Lisinopril (Zestril) 40 mg PO DAILY [facility] Last Admin: 10/31/18 09:17 Dose: 40 mg Morphine Sulfate (Morphine) 4 mg IVP Q6H PRN PRN Reason: Pain, severe (8-10) Morphine Sulfate (Morphine) 2 mg IVP Q4H PRN PRN Reason: Pain, moderate (4-7) Last Admin: 10/31/18 23:23 Dose: 2 mg [id number] Ethyl Esters (Lovaza) 1 gm PO DAILY [facility] Last Admin: 10/31/18 10:49 Dose: Not Given Ondansetron HCl (Zofran Inj) 4 mg IVP Q8 PRN PRN Reason: Nausea/Vomiting Last Admin: 10/30/18 22:09 Dose: 4 mg Ondansetron HCl (Zofran Inj) 4 mg IVP ONCE PRN PRN Reason: Nausea/Vomiting Tamsulosin HCl (Flomax) 0.4 mg PO DAILY [facility] Last Admin: 10/31/18 10:49 Dose: Not Given - Labs Labs: 10/31/18 15:35 10/31/18 07:30 PT 12.0 SECONDS (9.4-12.5) 10/30/18 13:00 INR 1.06 10/30/18 13:00 APTT 32.1 Seconds (26.9-38.3) 10/30/18 13:00 - Additional Findings Additional findings: - Constitutional Appears: Non-toxic, No Acute Distress - Head Exam Head Exam: ATRAUMATIC, NORMAL INSPECTION, NORMOCEPHALIC - Eye Exam Eye Exam: EOMI, Normal appearance, PERRL. absent: Conjunctival injection, Scleral icterus Pupil Exam: NORMAL ACCOMODATION - ENT Exam ENT Exam: Mucous Membranes Moist - Neck Exam Neck exam: Positive for: Full Rom, Normal Inspection. Negative for: Lymphadenopathy - Respiratory Exam Respiratory Exam: Clear to Auscultation Bilateral, NORMAL BREATHING PATTERN. absent: Accessory Muscle Use, Rales, Rhonchi, Wheezes, Respiratory Distress - Cardiovascular Exam Cardiovascular Exam: REGULAR RHYTHM, +S1, +S2 - GI/Abdominal Exam GI & Abdominal Exam: Normal Bowel Sounds, Soft, Tenderness (L upper- minimal to palpation ). absent: Distended, Firm, Guarding, Rigid - Rectal Exam Rectal Exam: Deferred - Extremities Exam Extremities exam: Positive for: normal capillary refill, normal inspection, pedal pulses present. Negative for: pedal edema - Back Exam Back exam: CVA tenderness (L), NORMAL INSPECTION. absent: rash noted - Neurological Exam Neurological exam: Alert, CN II-XII Intact, Normal Gait, Oriented x3 - Psychiatric Exam Psychiatric exam: Normal Affect, Normal Mood - Skin Skin Exam: Dry, Intact, Normal Color, Warm Assessment and Plan - Assessment and Plan (Free Text) Assessment: 1. L sided nephrolithiasis with hydronephrosis 2. CAD s/p 1 stent 3. Defibrillator 4. HTN 5. HLD 6. DM2 7. Pain control 8. Prior tobacco use 9. Depression/Anxiety Plan: Patient's vitals, blood work, and imaging reviewed in chart. Patient is POD#1 cystoscopy and L pigtail stent placement. Patient for ureteroscopy in the AM. Will f/u KUB ordered by urology. CT Abd/pelvis revealed 10 x 7.5mm calculus at the proximal left ureter resulting in moderate L hydronephrosis and moderate L peinephric stranding; Mild delayed enhancement of the L renal cortex. Pain regimen adjusted to Morphine 4q6, for severe pain and Morphine 2q4 for moderate pain. Patient on fluids NS@100cc/hr, Flomax and has been told to strain his urine. Rocephin and Gentamicin on board. Patient started on home medications Norvasc 5, Lisinopril 40 and Coreg 25 for HTN. Patient's eliquis and aspirin for CAD on hold at this time as patient for OR tomorrow. Patient's Lipitor and Lovaza continued for HLD. Patient on Accuchecks and RISS low for DM2. Zofran for nausea on board. Patient continued on Lexapro for his depresson/anxiety which is stable at this time. Urine culture negative final. EKG reviewed and CXR unremarkable. Abd x-ray on initial showed mild to moderate L hydronephrosis with retention of contrast in collection system of the left kidney. Urology Dr. Mata on board. Patient NPO after midnight for OR tomorrow. Discussed with Dr. Christine Collins PGY3 <Rito King - Last Filed: 11/01/18 16:42> Objective - Vital Signs/Intake and Output Vital Signs (last 24 hours): Temp Pulse Resp BP Pulse Ox 98.7 F 60 20 121/70 94 L 11/01/18 14:00 11/01/18 14:00 11/01/18 14:00 11/01/18 14:00 11/01/18 14:00 - Medications Medications: Current Medications Amlodipine Besylate (Norvasc) 5 mg PO DAILY [facility] Last Admin: 11/01/18 09:40 Dose: 5 mg Atorvastatin Calcium (Lipitor) 20 mg PO DIN [facility] Last Admin: 10/31/18 17:03 Dose: 20 mg Carvedilol (Coreg) 25 mg PO BID [facility] Last Admin: 11/01/18 09:38 Dose: 25 mg Escitalopram Oxalate (Lexapro) 10 mg PO DAILY [facility] Last Admin: 11/01/18 09:39 Dose: 10 mg Hydromorphone HCl (Dilaudid) 0.5 mg IVP Q15M PRN PRN Reason: Other Sodium Chloride (Sodium Chloride 0.9%) 1,000 mls @ 100 mls/hr IV .Q10H [facility] Last Admin: 10/31/18 17:04 Dose: Not Given Ceftriaxone Sodium (Rocephin 1 Gram Ivpb) 1 gm in 100 mls @ 100 mls/hr IVPB DAILY [facility]; Protocol Last Admin: 11/01/18 09:40 Dose: 100 mls/hr Gentamicin Sulfate 60 mg/ (Sodium Chloride) 101.5 mls @ 100 mls/hr IVPB Q8H [facility]; Protocol Last Admin: 11/01/18 14:27 Dose: 100 mls/hr Insulin Human Lispro (Humalog Low) 0 units SC ACHS [facility]; Protocol Last Admin: 11/01/18 11:36 Dose: 2 units Lisinopril (Zestril) 40 mg PO DAILY [facility] Last Admin: 11/01/18 09:41 Dose: 40 mg Morphine Sulfate (Morphine) 4 mg IVP Q6H PRN PRN Reason: Pain, severe (8-10) Morphine Sulfate (Morphine) 2 mg IVP Q4H PRN PRN Reason: Pain, moderate (4-7) Last Admin: 11/01/18 14:28 Dose: 2 mg [id number] Ethyl Esters (Lovaza) 1 gm PO DAILY [facility] Last Admin: 11/01/18 09:39 Dose: 1 gm Ondansetron HCl (Zofran Inj) 4 mg IVP Q8 PRN PRN Reason: Nausea/Vomiting Last Admin: 10/30/18 22:09 Dose: 4 mg Ondansetron HCl (Zofran Inj) 4 mg IVP ONCE PRN PRN Reason: Nausea/Vomiting Tamsulosin HCl (Flomax) 0.4 mg PO DAILY [facility] Last Admin: 11/01/18 09:38 Dose: 0.4 mg - Labs Labs: 11/01/18 07:00 11/01/18 07:00 PT 12.0 SECONDS (9.4-12.5) 10/30/18 13:00 INR 1.06 10/30/18 13:00 APTT 32.1 Seconds (26.9-38.3) 10/30/18 13:00 Assessment and Plan - Assessment and Plan (Free Text) Plan: Pt seen and examined by me. I have reviewed the note of the medical record assistant and I agree with it. I have discussed the assessment and plan with the resident. I have reviewed the medications and the last labs.Pt with L kidney stones and is s/p stent placement by urology. He is on ASA and Coreg for CAD. He will continue with Lipitor for dyslipidemia. On Lisinopril and Norvasc for HTN. I spoke to Dr Mata about the pt. The pt will get another procedure in the am. Pain is better. He has a few clots overnight. ISS with coverage for DM-2. Zofram for nausea. Lexapro for anxiety. Will be NPO overnight.
[2018-11-01 07:22] LABS: BASO # 0.01 K/mm3 (0.0-2.0); BASO % 0.2 % (0.0-3.0); EOS # 0.1 (0.0-0.7); HEMOGLOBIN 11.7 g/dL (14.0-18.0); LYMPH # 0.8 (1.2-3.4); MEAN CELL VOLUME 89.7 fl (80.0-105.0); MEAN CORPUSCULAR HEMOGLOBIN 30.2 pg (25.0-35.0); MEAN CORPUSCULAR HGB CONC 33.6 g/dl (31.0-37.0); MEAN PLATELET VOLUME 9.7 fl (7.0-11.0); MONO # 0.6 (0.1-0.6); MONO % 9.2 % (1.0-6.0); RBC 3.88 10^6/uL (3.5-6.1); RED CELL DISTRIBUTION WIDTH 14.1 % (11.5-14.5); WHITE BLOOD COUNT 6.4 10^3/uL (4.5-11.0)
[2018-11-01 07:55] LABS: ALB/GLOB RATIO 1.5 (1.1-1.8); ALBUMIN 3.9 g/dL (3.0-4.8); ALT/SGPT 23 U/L (7-56); AST/SGOT 16 U/L (17-59); BLOOD UREA NITROGEN 11 mg/dL (7-21); CALCIUM 8.1 mg/dL (8.4-10.5); GFR NON-AFRICAN AMERICAN > 60
[2018-11-01] MEDS: Insulin Lispro (humaLOG) LOW Coverage SC SCH ×4 (09:00→21:48)
[2018-11-01] MEDS: Omega-3-Acid Ethyl Esters 1 GM Cap PO SCH (09:39)
[2018-11-01] MEDS: cefTRIAXone 1 gm 1 GM/100 ML BAG IVPB SCH (09:40)
[2018-11-01] MEDS: Morphine 2 mg/ml ISec IVP PRN ×2 (14:28→19:51)
--- NOTE | 2018-11-01 15:43 | RAD ---
Date of service: 11/01/2018 HISTORY: Left ureteral stone COMPARISON: Comparison made with prior plain film radiographs of the abdomen 10/30/[address] scan of the abdomen pelvis 10/29/2018.. FINDINGS: BOWEL: Normal. No obstruction. No free air. BONES: Normal. OTHER FINDINGS: In situ left ureteral stent.. Previously noted left 10 mm x 7.5 mm left UPJ calculus is not appreciated on this study. IMPRESSION: In situ left ureteral stent.. Previously noted left 10 mm x 7.5 mm left UPJ calculus is not appreciated on this study.
[2018-11-01] MEDS: Sodium Chloride 0.9% 1,000 ML IV SCH (17:53)
--- NOTE | 2018-11-01 18:21 | CON ---
DATE: 11/01/2018 UROLOGY CONSULTATION REASON FOR CONSULTATION: Severe renal colic. HISTORY OF PRESENT ILLNESS: Very pleasant gentleman who has avoiding dysfunction who has presented with left renal colic and left hydronephrosis, secondary to left ureteral stone. PAST MEDICAL AND SURGICAL HISTORY: He has underlying hypertension, coronary artery disease. He has had a cardiac stent. He has pacemaker and a defibrillator. He does not have any history of stone disease. REVIEW OF SYSTEMS: As listed above, noncontributory. SOCIAL HISTORY: Socially, he works as an journeyman apprentice electricians. He lives here [place], he is from [place]. PHYSICAL EXAMINATION: GENERAL: Well-nourished male, in no apparent distress. VITAL SIGNS: Noted. LUNGS: Clear. HEART: Normal S1 and S2. ABDOMEN: Overall soft and nontender. GENITOURINARY: Normal phallus. There are no testicular masses. LABORATORY DATA: Repeat labs noted. White count within normal limits for now. The hemoglobin and hematocrit noted, glucose is little bit noted. The CT scan is noted. DIAGNOSES: Renal colic, urolithiasis, hydronephrosis and impending sepsis. PLAN AND RECOMMENDATION: As above discussed. A 63-year-old gentleman with underlying diabetes. Upon initial presentation, the patient presented, was afebrile. At this point with a low-grade fever diabetic, we are going to do the following and he still on antibiotics now and for safety reasons, we are going to make arrangements first thing in the morning. Actually after discussing options, we are going to refer him to Radiology Director clearance, once we get Cardiology clearance, we are going to plan for a discussed with the patient. Further plans will follow. The plan is as follows; 1. We are going to arrange . We will plan for a cysto and a stent insertion and then subsequently we will discuss shock-wave lithotripsy with ureteroscopy , he is currently on aspirin, so we have to make sure that we stop the aspirin and Eliquis. We will stop the Eliquis in couple of days. Alex Mata MD
[2018-11-02] MEDS: Sodium Chloride 0.9% 1,000 ML IV SCH ×2 (05:19→22:59)
[2018-11-02 07:09] LABS: ALB/GLOB RATIO 1.4 (1.1-1.8); ALBUMIN 4.2 g/dL (3.0-4.8); ALT/SGPT 25 U/L (7-56); AST/SGOT 21 U/L (17-59); BLOOD UREA NITROGEN 11 mg/dL (7-21); CALCIUM 8.6 mg/dL (8.4-10.5); GFR NON-AFRICAN AMERICAN > 60
[2018-11-02 07:13] LABS: BASO # 0.03 K/mm3 (0.0-2.0); BASO % 0.5 % (0.0-3.0); EOS # 0.2 (0.0-0.7); EOS % 2.7 % (1.5-5.0); HEMOGLOBIN 12.6 g/dL (14.0-18.0); LYMPH # 0.8 (1.2-3.4); LYMPH % 14.1 % (22.0-35.0); MEAN CELL VOLUME 89.2 fl (80.0-105.0); MEAN CORPUSCULAR HEMOGLOBIN 30.3 pg (25.0-35.0); MEAN PLATELET VOLUME 10.2 fl (7.0-11.0); MONO # 0.6 (0.1-0.6); MONO % 11.7 % (1.0-6.0); RBC 4.16 10^6/uL (3.5-6.1); RED CELL DISTRIBUTION WIDTH 13.8 % (11.5-14.5); WHITE BLOOD COUNT 5.5 10^3/uL (4.5-11.0)
--- NOTE | 2018-11-02 08:32 | OP ---
PROCEDURE DATE: 10/31/2018 UROLOGY OPERATIVE NOTE Please see history and physical for further details and see the urology consult. PREOPERATIVE DIAGNOSES: Left renal colic, left ureteral stone, left hydronephrosis, impending sepsis. POSTOPERATIVE DIAGNOSES: Left renal colic, left ureteral stone, left hydronephrosis impending sepsis, and moderately heavily obstructed left ureter. PROCEDURE: Cystoscopy, left retrograde pyelogram, insertion of a left double J-stent. COMPLICATIONS: There were no complications. ESTIMATED BLOOD LOSS: Less than 10 mL. UROLOGY OPERATIVE FINDINGS: 1. Normal anterior urethra, no stricture. 2. There is a prostatic calcification noted within the urethra. The prostatic urethra itself was about 2 or 3 cm, visually occlusive. There was a stent placed without complications. I do want to mention that the contrast did not go up well to the kidney. But we were able to place the stent without difficulty. INDICATIONS: See history and physical and consultation note. A pleasant gentleman, underlying diabetes, multiple medical problems, just 63 years old, he has a pacemaker and a defibrillator and stents; these all mostly overworked. He does not have any current chest pain or shortness of breath or the like. At the request of Dr. King, we got a Cardiology consult from Dr. Londono who saw and evaluated the patient prior to doing any procedures. With the low grade fever in a diabetic with an obstructive kidney, we want to make sure we did this rapidly as possible for the risk of sepsis. After discussing various options with the patient, the patient was here now for the above procedure. DESCRIPTION OF PROCEDURE: After obtaining informed consent, the patient placed on the table. Routine monitors placed. Timeout was called to confirm patient positioning. We introduced the scope via urethra. We noted no surgical visually occlusive, appeared to be for prostatic calcification . We identified the ureteral orifice and on the patient's left side we did a left retrograde pyelogram. with the cone-tip catheter and being inserted almost up to the iliac vessel, which is really far for a cone tip, it is still just back flow. It goes up and . . At this point, I put a wire in and that went easily smoothly to the left kidney without complication, put J-stent over this wire. The patient tolerated the procedure without complication. So, at termination we then emptied the bladder, we did a rectal exam, 20 to 30 g prostate, was also smooth. All normal. The patient tolerated the procedure well without complication. Alex Mata MD
--- NOTE | 2018-11-02 09:10 | CP.PCM.PN ---
<KarinaXiomy - Last Filed: 11/02/18 13:30> Subjective - Date & Time of Evaluation Date of Evaluation: 11/02/18 Time of Evaluation: 07:00 - Subjective Subjective: Pgy3 Medicine progress note for Dr. King Patient seen and examined at bedside. As per nursing patient required morphine x 1 overnight for pain. Patient remained afebrile. He is for procedure today with Dr. Mata and is POD#2 cystoscopy and L pigtail stent placement. Patient denied other complaints fever, chills, headache, dizziness, chest pain, palpitations, SOB, cough, nausea, vomiting, bowel complaints, pain/swelling in legs bilaterally. Objective - Vital Signs/Intake and Output Vital Signs (last 24 hours): Temp Pulse Resp BP Pulse Ox 98.2 F 63 18 135/80 95 11/02/18 06:00 11/02/18 06:00 11/02/18 06:00 11/02/18 06:00 11/02/18 06:00 Intake and Output: 11/02/18 11/02/18 06:59 18:59 Intake Total 180 Balance 180 - Medications Medications: Current Medications Amlodipine Besylate (Norvasc) 5 mg PO DAILY [facility] Last Admin: 11/01/18 09:40 Dose: 5 mg Atorvastatin Calcium (Lipitor) 20 mg PO DIN [facility] Last Admin: 11/01/18 17:52 Dose: 20 mg Carvedilol (Coreg) 25 mg PO BID [facility] Last Admin: 11/01/18 17:51 Dose: 25 mg Escitalopram Oxalate (Lexapro) 10 mg PO DAILY [facility] Last Admin: 11/01/18 09:39 Dose: 10 mg Hydromorphone HCl (Dilaudid) 0.5 mg IVP Q15M PRN PRN Reason: Other Sodium Chloride (Sodium Chloride 0.9%) 1,000 mls @ 100 mls/hr IV .Q10H [facility] Last Admin: 11/02/18 05:19 Dose: 100 mls/hr Ceftriaxone Sodium (Rocephin 1 Gram Ivpb) 1 gm in 100 mls @ 100 mls/hr IVPB DAILY [facility]; Protocol Last Admin: 11/01/18 09:40 Dose: 100 mls/hr Gentamicin Sulfate 60 mg/ (Sodium Chloride) 101.5 mls @ 100 mls/hr IVPB Q8H [facility]; Protocol Last Admin: 11/02/18 05:28 Dose: 100 mls/hr Insulin Human Lispro (Humalog Low) 0 units SC ACHS [facility]; Protocol Last Admin: 11/01/18 21:48 Dose: Not Given Lisinopril (Zestril) 40 mg PO DAILY [facility] Last Admin: 11/01/18 09:41 Dose: 40 mg Morphine Sulfate (Morphine) 4 mg IVP Q6H PRN PRN Reason: Pain, severe (8-10) Morphine Sulfate (Morphine) 2 mg IVP Q4H PRN PRN Reason: Pain, moderate (4-7) Last Admin: 11/01/18 19:51 Dose: 2 mg [id number] Ethyl Esters (Lovaza) 1 gm PO DAILY [facility] Last Admin: 11/01/18 09:39 Dose: 1 gm Ondansetron HCl (Zofran Inj) 4 mg IVP Q8 PRN PRN Reason: Nausea/Vomiting Last Admin: 10/30/18 22:09 Dose: 4 mg Ondansetron HCl (Zofran Inj) 4 mg IVP ONCE PRN PRN Reason: Nausea/Vomiting Tamsulosin HCl (Flomax) 0.4 mg PO DAILY [facility] Last Admin: 11/01/18 09:38 Dose: 0.4 mg - Labs Labs: 11/02/18 06:20 11/02/18 06:20 PT 12.0 SECONDS (9.4-12.5) 10/30/18 13:00 INR 1.06 10/30/18 13:00 APTT 32.1 Seconds (26.9-38.3) 10/30/18 13:00 - Additional Findings Additional findings: - Constitutional Appears: Non-toxic, No Acute Distress - Head Exam Head Exam: ATRAUMATIC, NORMAL INSPECTION, NORMOCEPHALIC - Eye Exam Eye Exam: EOMI, Normal appearance, PERRL. absent: Conjunctival injection, Scleral icterus Pupil Exam: NORMAL ACCOMODATION - ENT Exam ENT Exam: Mucous Membranes Moist - Neck Exam Neck exam: Positive for: Full Rom, Normal Inspection. Negative for: Lymphadenopathy - Respiratory Exam Respiratory Exam: Clear to Auscultation Bilateral, NORMAL BREATHING PATTERN. absent: Accessory Muscle Use, Rales, Rhonchi, Wheezes, Respiratory Distress - Cardiovascular Exam Cardiovascular Exam: REGULAR RHYTHM, +S1, +S2 - GI/Abdominal Exam GI & Abdominal Exam: Normal Bowel Sounds, Soft, Tenderness (minimal to palpation ). absent: Distended, Firm, Guarding, Rigid - Rectal Exam Rectal Exam: Deferred - Extremities Exam Extremities exam: Positive for: normal capillary refill, normal inspection, pedal pulses present. Negative for: pedal edema - Back Exam Back exam: CVA tenderness (L), NORMAL INSPECTION. absent: rash noted - Neurological Exam Neurological exam: Alert, CN II-XII Intact, Normal Gait, Oriented x3 - Psychiatric Exam Psychiatric exam: Normal Affect, Normal Mood - Skin Skin Exam: Dry, Intact, Normal Color, Warm Assessment and Plan - Assessment and Plan (Free Text) Assessment: 1. L sided nephrolithiasis with hydronephrosis 2. CAD s/p 1 stent 3. Defibrillator 4. HTN 5. HLD 6. DM2 7. Pain control 8. Prior tobacco use 9. Depression/Anxiety Plan: Patient's vitals, blood work, and imaging reviewed in chart. Patient is POD#2 cystoscopy and L pigtail stent placement. Patient for ureteroscopy in the AM. KUB showed in situ left ureteral stent; previously noted left 10mm x 7.5mm left UPJ calculus not appreciated. Patient for ureteroscopy today. CT Abd/pelvis on admission revealed 10 x 7.5mm calculus at the proximal left ureter resulting in moderate L hydronephrosis and moderate L peinephric stranding; Mild delayed e nhancement of the L renal cortex. Pain regimen on board Morphine 4q6, for severe pain and Morphine 2q4 for moderate pain. Patient on fluids NS@100cc/hr, Flomax and has been told to strain his urine. Rocephin and Gentamicin on board. Patient started on home medications Norvasc 5, Lisinopril 40 and Coreg 25 for HTN. Patient's eliquis and aspirin for CAD on hold at this time due to procedure. Patient's Lipitor and Lovaza continued for HLD. Patient on Accuchecks and RISS low for DM2. Zofran for nausea on board. Patient continued on Lexapro for his depresson/anxiety which is stable at this time. Urine culture negative final. EKG reviewed and CXR unremarkable. Urology Dr. Mata on board. Will continue to monitor closely. Discussed with Dr. Christine Collins PGY3 <Rito King S - Last Filed: 11/02/18 19:54> Objective - Vital Signs/Intake and Output Vital Signs (last 24 hours): Temp Pulse Resp BP Pulse Ox 98.9 F 56 L 16 153/95 H 100 11/02/18 18:28 11/02/18 19:10 11/02/18 18:28 11/02/18 19:10 11/02/18 18:28 Intake and Output: 11/02/18 11/03/18 18:59 06:59 Intake Total 75 Balance 75 - Medications Medications: Current Medications Amlodipine Besylate (Norvasc) 5 mg PO DAILY [facility] Last Admin: 11/02/18 19:10 Dose: 5 mg Atorvastatin Calcium (Lipitor) 20 mg PO DIN [facility] Last Admin: 11/02/18 19:09 Dose: 20 mg Carvedilol (Coreg) 25 mg PO BID [facility] Last Admin: 11/02/18 19:09 Dose: 25 mg Escitalopram Oxalate (Lexapro) 10 mg PO DAILY [facility] Last Admin: 11/02/18 19:10 Dose: 10 mg Hydromorphone HCl (Dilaudid) 0.5 mg IVP Q15M PRN PRN Reason: Pain, Moderate/Severe (4-10) Stop: 11/02/18 23:59 Sodium Chloride (Sodium Chloride 0.9%) 1,000 mls @ 100 mls/hr IV .Q10H [facility] Last Admin: 11/02/18 05:19 Dose: 100 mls/hr Ceftriaxone Sodium (Rocephin 1 Gram Ivpb) 1 gm in 100 mls @ 100 mls/hr IVPB DAILY [facility]; Protocol Last Admin: 11/02/18 09:41 Dose: 100 mls/hr Gentamicin Sulfate 60 mg/ (Sodium Chloride) 101.5 mls @ 100 mls/hr IVPB Q8H [facility]; Protocol Last Admin: 11/02/18 15:11 Dose: 100 mls/hr Lactated Ringer's (Lactated Ringer's) 1,000 mls @ 75 mls/hr IV .[id number] [facility] Stop: 11/02/18 20:16 Insulin Human Lispro (Humalog Low) 0 units SC ACHS [facility]; Protocol Last Admin: 11/02/18 19:12 Dose: Not Given Lisinopril (Zestril) 40 mg PO DAILY [facility] Last Admin: 11/02/18 19:10 Dose: 40 mg Morphine Sulfate (Morphine) 4 mg IVP Q6H PRN PRN Reason: Pain, severe (8-10) Morphine Sulfate (Morphine) 2 mg IVP Q4H PRN PRN Reason: Pain, moderate (4-7) Last Admin: 11/01/18 19:51 Dose: 2 mg Uvikg-[id number] Ethyl Esters (Lovaza) 1 gm PO DAILY [facility] Last Admin: 11/02/18 19:10 Dose: 1 gm Ondansetron HCl (Zofran Inj) 4 mg IVP Q8 PRN PRN Reason: Nausea/Vomiting Last Admin: 10/30/18 22:09 Dose: 4 mg Tamsulosin HCl (Flomax) 0.4 mg PO DAILY [facility] Last Admin: 11/02/18 19:10 Dose: 0.4 mg - Labs Labs: 11/02/18 06:20 11/02/18 06:20 PT 12.0 SECONDS (9.4-12.5) 10/30/18 13:00 INR 1.06 10/30/18 13:00 APTT 32.1 Seconds (26.9-38.3) 10/30/18 13:00 Assessment and Plan - Assessment and Plan (Free Text) Plan: Pt seen and examined by me. I have reviewed the note of the medical center representative and I agree with it. I have discussed the assessment and plan with the resident. I have reviewed the medications and the last labs. Pt with L nephrolithiasis and had a stent placement by Dr Mata. He has L hydro. His pain is controlled. He does have CAD and is stable and being followed by cardiology. HTN is controlled by Norvasc and Lisinopril. He is on Lipitor for dyslipidemia.
[2018-11-02] MEDS: cefTRIAXone 1 gm 1 GM/100 ML BAG IVPB SCH (09:41)
[2018-11-02] MEDS ORDERED: Iohexol 240 (50 ml) ONE (15:43)
[2018-11-02] MEDS ORDERED: Propofol 10 mg/ml Inj (20 ML) ONE (16:47)
[2018-11-02] MEDS ORDERED: Midazolam 2 MG/2 ML VIAL ONE (16:47)
[2018-11-02] MEDS ORDERED: Lidocaine 1% Inj (20ml) ONE (16:49)
[2018-11-02] MEDS ORDERED: cefTRIAXone (Rocephin) 1 gm Inj ONE (17:03)
[2018-11-02] MEDS ORDERED: HYDROmorphone 0.5 mg/0.5 ml ISec IVP PRN (18:01)
[2018-11-02] MEDS ORDERED: Lactated Ringer's 1,000 ML IV SCH (18:15)
[2018-11-02] MEDS: Omega-3-Acid Ethyl Esters 1 GM Cap PO SCH (19:10)
[2018-11-02] MEDS: Insulin Lispro (humaLOG) LOW Coverage SC SCH ×3 (19:11→23:01)
--- NOTE | 2018-11-02 23:34 | PCM.URO ---
Urology Progress Note - Subjective Other: op note to be dictated. today we performed ureteroscopy and renoscopy and laser lithotripsy. pt will need follow up as an out pt. for now he can resume his eloquis and aspirin. will order kub for am - Objective Lab Results Last 24 Hours: Laboratory Results - last 24 hr 11/02/18 11/02/18 11/02/18 06:20 06:20 06:25 WBC 5.5 RBC 4.16 Hgb 12.6 L Hct 37.1 L MCV 89.2 MCH 30.3 MCHC 34.0 RDW 13.8 Plt Count 148 MPV 10.2 Neut % (Auto) 71.0 H Lymph % (Auto) 14.1 L Mclennan % (Auto) 11.7 H Eos % (Auto) 2.7 Baso % (Auto) 0.5 Lymph # (Auto) 0.8 L Mclennan # (Auto) 0.6 Eos # (Auto) 0.2 Baso # (Auto) 0.03 Absolute Neuts (auto) 3.87 Sodium 138 Potassium 3.9 Chloride 101 Carbon Dioxide 32 Anion Gap 10 BUN 11 Creatinine 0.7 L Est GFR ( Amer) > 60 Est GFR (Non-Af Amer) > 60 POC Glucose (mg/dL) 154 H Random Glucose 144 H Calcium 8.6 Total Bilirubin 0.9 AST 21 ALT 25 Alkaline Phosphatase 61 Total Protein 7.2 Albumin 4.2 Globulin 3.0 Albumin/Globulin Ratio 1.4 11/02/18 11/02/18 10:49 21:05 WBC RBC Hgb Hct MCV MCH MCHC RDW Plt Count MPV Neut % (Auto) Lymph % (Auto) Mclennan % (Auto) Eos % (Auto) Baso % (Auto) Lymph # (Auto) Mclennan # (Auto) Eos # (Auto) Baso # (Auto) Absolute Neuts (auto) Sodium Potassium Chloride Carbon Dioxide Anion Gap BUN Creatinine Est GFR ( Amer) Est GFR (Non-Af Amer) POC Glucose (mg/dL) 144 H 277 H Random Glucose Calcium Total Bilirubin AST ALT Alkaline Phosphatase Total Protein Albumin Globulin Albumin/Globulin Ratio Intake & Output: Intake & Output 11/02/18 11/02/18 11/03/18 06:59 18:59 06:59 Intake Total 180 75 600 Output Total 175 Balance 180 75 425 Weight 186 lb Intake: IV 75 Oral 180 600 Output: Urine 175 Urine, Voided 175 Other: # Bowel Movements 0 Vital Signs: Vital Signs - 24 hr 11/02/18 11/02/18 11/02/18 06:00 09:40 14:00 Temperature 98.2 F 98.3 F Pulse Rate 63 63 59 L Respiratory 18 20 Rate Blood Pressure 135/80 135/80 151/96 H O2 Sat by Pulse 95 98 Oximetry 11/02/18 11/02/18 11/02/18 15:15 17:58 18:13 Temperature 98.9 F 98.9 F 98.9 F Pulse Rate 59 L 60 60 Respiratory 18 15 16 Rate Blood Pressure 170/96 H 165/77 H 173/88 H O2 Sat by Pulse 96 97 98 Oximetry 11/02/18 11/02/18 11/02/18 18:28 19:09 19:10 Temperature 98.9 F Pulse Rate 60 56 L 56 L Respiratory 16 Rate Blood Pressure 167/83 H 153/95 H 153/95 H O2 Sat by Pulse 100 Oximetry 11/02/18 23:11 Temperature 98.5 F Pulse Rate 92 H Respiratory 20 Rate Blood Pressure 140/88 O2 Sat by Pulse 98 Oximetry
[2018-11-03 07:39] LABS: BASO # 0.02 K/mm3 (0.0-2.0); BASO % 0.4 % (0.0-3.0); EOS # 0.1 (0.0-0.7); EOS % 2.5 % (1.5-5.0); HEMOGLOBIN 12.2 g/dL (14.0-18.0); LYMPH # 0.7 (1.2-3.4); LYMPH % 14.2 % (22.0-35.0); MEAN CELL VOLUME 87.8 fl (80.0-105.0); MEAN CORPUSCULAR HEMOGLOBIN 30.4 pg (25.0-35.0); MEAN CORPUSCULAR HGB CONC 34.7 g/dl (31.0-37.0); MEAN PLATELET VOLUME 10.1 fl (7.0-11.0); MONO # 0.7 (0.1-0.6); MONO % 13.6 % (1.0-6.0); RBC 4.01 10^6/uL (3.5-6.1); RED CELL DISTRIBUTION WIDTH 13.4 % (11.5-14.5); WHITE BLOOD COUNT 5.2 10^3/uL (4.5-11.0)
[2018-11-03] MEDS: Insulin Lispro (humaLOG) LOW Coverage SC SCH ×2 (07:59→12:54)
[2018-11-03 08:04] LABS: ALB/GLOB RATIO 1.5 (1.1-1.8); ALT/SGPT 28 U/L (7-56); AST/SGOT 30 U/L (17-59); BLOOD UREA NITROGEN 11 mg/dL (7-21); CALCIUM 8.7 mg/dL (8.4-10.5); GFR NON-AFRICAN AMERICAN > 60
[2018-11-03 08:42] VITALS: PULSE 60; RESP 18; TEMP 98.7; O2SAT 96
[2018-11-03] MEDS: Sodium Chloride 0.9% 1,000 ML IV SCH (09:57)
[2018-11-03] MEDS: cefTRIAXone 1 gm 1 GM/100 ML BAG IVPB SCH (10:00)
[2018-11-03] MEDS: Omega-3-Acid Ethyl Esters 1 GM Cap PO SCH (10:01)
[2018-11-03 10:05] VITALS: BP 140/74
--- NOTE | 2018-11-03 11:07 | RAD ---
Date of service: 11/03/2018 HISTORY: urolithiasis COMPARISON: None available. FINDINGS: BOWEL: Left-sided double-J ureteral stent is in position. No adjacent calculi are seen relative to the stent. Stent may have been replaced as it appears more straightened in less ectatic at the proximal distal ends proximal to each coil. Nonobstructive bowel gas pattern appreciated. No abnormal internal calcifications and vascular calcifications are seen in the pelvis soft tissues bilaterally. No large free intrarenal gas collection evident. BONES: Normal. OTHER FINDINGS: None. IMPRESSION: Left double-J ureteral stent possibly replaced, in situ in as discussed above. No adjacent ureteral calculus appreciable.
--- NOTE | 2018-11-03 12:42 | CP.PCM.DIS ---
<Xiomy Collins - Last Filed: 11/03/18 12:52> Provider - Provider Date of Admission: 10/29/18 19:57 Attending physician: Rito King MD Primary care physician: Dr. Barraza Consults: 10/29/18 20:10 Consult [Physician Consult] Routine Comment: Consulting Provider: Juan Mata Consulting Physician: Juan Mata Reason for Consult: kidney stone 10/30/18 19:48 Consult [Physician Consult] Routine Comment: Consulting Provider: Kelvin Londono Consulting Physician: Kelvin Londono Reason for Consult: pre-op for stent Time Spent in preparation of Discharge (in minutes): 45 Hospital Course - Lab Results Lab Results: Micro Results 10/29/18 19:38 Urine Random Urine Culture - Final No Growth (<1,000 CFU/ML) Most Recent Lab Values WBC 5.2 10^3/uL (4.5-11.0) 11/03/18 07:20 RBC 4.01 10^6/uL (3.5-6.1) 11/03/18 07:20 Hgb 12.2 g/dL (14.0-18.0) L 11/03/18 07:20 Hct 35.2 % (42.0-52.0) L 11/03/18 07:20 MCV 87.8 fl (80.0-105.0) 11/03/18 07:20 MCH 30.4 pg (25.0-35.0) 11/03/18 07:20 MCHC 34.7 g/dl (31.0-37.0) 11/03/18 07:20 RDW 13.4 % (11.5-14.5) 11/03/18 07:20 Plt Count 160 10^3/uL (120.0-450.0) 11/03/18 07:20 MPV 10.1 fl (7.0-11.0) 11/03/18 07:20 Neut % (Auto) 69.3 % (50.0-68.0) H 11/03/18 07:20 Lymph % (Auto) 14.2 % (22.0-35.0) L 11/03/18 07:20 [place] % (Auto) 13.6 % (1.0-6.0) H 11/03/18 07:20 Eos % (Auto) 2.5 % (1.5-5.0) 11/03/18 07:20 Baso % (Auto) 0.4 % (0.0-3.0) 11/03/18 07:20 Lymph # (Auto) 0.7 (1.2-3.4) L 11/03/18 07:20 [place] # (Auto) 0.7 (0.1-0.6) H 11/03/18 07:20 Eos # (Auto) 0.1 (0.0-0.7) 11/03/18 07:20 Baso # (Auto) 0.02 K/mm3 (0.0-2.0) 11/03/18 07:20 Absolute Neuts (auto) 3.62 (1.4-6.5) 11/03/18 07:20 PT 12.0 SECONDS (9.4-12.5) 10/30/18 13:00 INR 1.06 10/30/18 13:00 APTT 32.1 Seconds (26.9-38.3) 10/30/18 13:00 Sodium 139 mmol/L (132-148) 11/03/18 07:20 Potassium 3.8 mmol/L (3.6-5.0) 11/03/18 07:20 Chloride 101 mmol/L (98-107) 11/03/18 07:20 Carbon Dioxide 32 mmol/L (21-33) 11/03/18 07:20 Anion Gap 9 (10-20) L 11/03/18 07:20 BUN 11 mg/dL (7-21) 11/03/18 07:20 Creatinine 0.8 mg/dl (0.8-1.5) 11/03/18 07:20 Est GFR ( Amer) > 60 11/03/18 07:20 Est GFR (Non-Af Amer) > 60 11/03/18 07:20 POC Glucose (mg/dL) 277 mg/dL (65-110) H 11/02/18 21:05 Random Glucose 136 mg/dL (70-110) H 11/03/18 07:20 Hemoglobin A1c 7.5 % (4.2-6.5) H 10/31/18 07:30 Calcium 8.7 mg/dL (8.4-10.5) 11/03/18 07:20 Phosphorus 3.1 mg/dL (2.5-4.5) 10/31/18 07:30 Magnesium 1.9 mg/dL (1.7-2.2) 10/31/18 07:30 Total Bilirubin 0.6 mg/dL (0.2-1.3) 11/03/18 07:20 AST 30 U/L (17-59) 11/03/18 07:20 ALT 28 U/L (7-56) 11/03/18 07:20 Alkaline Phosphatase 60 U/L (38-126) 11/03/18 07:20 Lactate Dehydrogenase 562 U/L (333-699) 10/29/18 18:24 Total Creatine Kinase 104 U/L (35-230) 10/29/18 18:24 Troponin I < 0.01 ng/mL 10/29/18 18:24 Total Protein 6.7 g/dL (5.8-8.3) 11/03/18 07:20 Albumin 4.0 g/dL (3.0-4.8) 11/03/18 07:20 Globulin 2.7 gm/dL 11/03/18 07:20 Albumin/Globulin Ratio 1.5 (1.1-1.8) 11/03/18 07:20 Triglycerides 160 mg/dL (35-160) 10/31/18 07:30 Cholesterol 146 mg/dL (130-200) 10/31/18 07:30 LDL Cholesterol Direct 86 mg/dL (0-129) 10/31/18 07:30 HDL Cholesterol 35 mg/dL (29-60) 10/31/18 07:30 Lipase 68 U/L (23-300) 10/29/18 18:24 Free T4 0.76 ng/dL (0.78-2.19) L 10/31/18 07:30 TSH 3rd Generation 0.82 mIU/mL (0.46-4.68) 10/31/18 07:30 Urine Color Light yellow (YELLOW) 10/29/18 19:38 Urine Appearance Clear (CLEAR) 10/29/18 19:38 Urine pH 7.5 (4.7-8.0) 10/29/18 19:38 Ur Specific [place] 1.020 (1.005-1.035) 10/29/18 19:38 Urine Protein 30 mg/dL (<30 mg/dL) H 10/29/18 19:38 Urine Glucose (UA) 100 mg/dL (NEGATIVE) H 10/29/18 19:38 Urine Ketones 15 mg/dL (NEGATIVE) H 10/29/18 19:38 Urine Blood Small (NEGATIVE) H 10/29/18 19:38 Urine Nitrate Negative (NEGATIVE) 10/29/18 19: Urine Bilirubin Negative (NEGATIVE) 10/29/18 19:38 Urine Urobilinogen 0.2 E.U./dL (<1 E.U./dL) 10/29/18 19:38 Ur Leukocyte Esterase Negative Erica/uL (NEGATIVE) 10/29/18 19:38 Urine RBC 15 - 20 /hpf (0-2) H 10/29/18 19:38 Urine WBC 5 - 10 /hpf (0-6) H 10/29/18 19:38 Ur Epithelial Cells 6 - 8 /hpf (0-5) H 10/29/18 19:38 - Hospital Course Hospital Course: Upon Admission 63yo male PMHx CAD s/p 1 stent, defibrillator, HTN, HLD, DM2, prior tobacco use quit in 2012 presents with left sided abdominal pain for 2-3 days. Patient reports he started no notice having a sharp stabbing pain that was intermitted on his left abdomen that radiated to his left flank and back at times. At worst he reported the pain was 10/10 in intensity. He described the pain in his anterior region as a sharp pain like he had "ran too fast" and the pain in his flank and back a dull pressure. The pain worsened and he had associated nausea and one episode of nonbilious nonbloody emesis. Patient reported lying down made the pain worse at times and walking around helped. He denied any changes in urination and denied any dysura, hematuria, foul odor. On ROS patient denied any feevr, chills, ehadache, dizziness, chest pain, palpitations, SOB, cough, bowel/bladder complaints, pain/swelling in his legs bilaterally. Patient reports he usually drinks a lot of water but in the past week he had not been doing so. Hospital Course Patient admitted to med/surg for further management. CT Abd/pelvis revealed 10 x 7.5mm calculus at the proximmal left ureter resulting in moderate L hydronephrosis and moderate L peinephric stranding; Mild delayed enhancement of the L renal cortex. Urology Dr. Mata consulted. Patient stared on NS@100, Flomax, Morphine 4q6, for severe pain and Morphine 2q4 for moderate pain, and IV abx. Patient's ASA and Eliquis were held for procedure and cardiology was consulted to risk stratify patient for OR. Patient had cystoscopy and L pigtail stent placement on 10/31/18. KUB after procedure showed in situ left ureteral stent; previously noted left 10mm x 7.5mm left UPJ calculus not appreciated. Patient had ureteroscopy and renoscopy and laser lithotripsy on 11/02/18 and tolerated well. Repeat KUB showed left double-J ureteral stent possibly placed in situ with no adjacent ureteral calculus appreciable. Patient's pain resolved and he clinically improved. On day of discharge patient was deemed medically optimized for discharge home with outpatient follow up. Discharge instructions You are being discharged from [facility]. Upon discharge please resume home medications including ASA and Eliquis. You are also being discharged on the following medication: -Flomax 0.4mg 1 tab daily Disp#30 Please follow up with your PMD Dr. Barraza within 5-7 days. Please also follow up with Urology Dr. Mata within 7-10 days. Please be sure to drink at least 2L of fluid daily. You have been given a note for work. You may return work on 11/04/18. If symptoms return please visit your nearest Emergency Room. Instructions discussed in detail with patient who vocalized understanding and agreement Please note this is a discharge summary. For full hospital course please refer to EMR Discharge Exam - Head Exam Head Exam: ATRAUMATIC, NORMAL INSPECTION, NORMOCEPHALIC - Eye Exam Eye Exam: EOMI, Normal appearance, PERRL. absent: Conjunctival injection, Scleral icterus - ENT Exam ENT Exam: Mucous Membranes Moist - Neck Exam Neck exam: Full Rom, Normal Inspection - Respiratory Exam Respiratory Exam: Clear to PA & Lateral, NORMAL BREATHING PATTERN, UNREMARKABLE. absent: Accessory Muscle Use, Rales, Rhonchi, Wheezes, Respiratory Distress - Cardiovascular Exam Cardiovascular Exam: +S1, +S2. absent: Systolic Murmur - GI/Abdominal Exam GI & Abdominal Exam: Normal Bowel Sounds, Soft. absent: Firm, Guarding, Hypoactive Bowel Sounds, Rigid, Tenderness - Extremities Exam Extremities exam: normal capillary refill, normal inspection, pedal pulses present - Back Exam Back exam: NORMAL INSPECTION. absent: rash noted - Neurological Exam Neurological exam: Alert, CN II-XII Intact, Normal Gait, Oriented x3 - Psychiatric Exam Psychiatric exam: Normal Affect, Normal Mood - Skin Skin Exam: Dry, Intact, Normal Color, Warm Discharge Plan - Discharge Medications Prescriptions: Aspirin [Adult Low Dose Aspirin EC] 81 mg PO DAILY #30 tablet.dr RX: Tamsulosin [Flomax] 0.4 mg PO DAILY #30 cap - Follow Up Plan Condition: FAIR Disposition: HOME/ ROUTINE Instructions: Kidney Stones (DC), Ureteral Stent (DC), Laser Lithotripsy for Kidney Stones (DC), Kidney Stone Diet Additional Instructions: You are being discharged from [facility]. Upon discharge please resume home medications including ASA and Eliquis. You are also being discharged on the following medication: -Flomax 0.4mg 1 tab daily Disp#30 Please follow up with your PMD Dr. Barraza within 5-7 days. Please also follow up with Urology Dr. Mata within 7-10 days. Please be sure to drink at least 2L of fluid daily. You have been given a note for work. You may return work on 11/04/18. If symptoms return please visit your nearest Emergency Room. Referrals: Juan Mata MD [Staff Provider] - Jennifer Barraza MD [Family Provider] - <Rito King - Last Filed: 11/03/18 19:25> Provider - Provider Date of Admission: 10/29/18 19:57 Attending physician: Rito King MD Consults: 10/29/18 20:10 Consult [Physician Consult] Routine Comment: Consulting Provider: Juan Mata Consulting Physician: Juan Mata Reason for Consult: kidney stone 10/30/18 19:48 Consult [Physician Consult] Routine Comment: Consulting Provider: Kelvin Londono Consulting Physician: Kelvin Londono Reason for Consult: pre-op for stent Hospital Course - Lab Results Lab Results: Micro Results 10/29/18 19:38 Urine Random Urine Culture - Final No Growth (<1,000 CFU/ML) Most Recent Lab Values WBC 5.2 10^3/uL (4.5-11.0) 11/03/18 07:20 RBC 4.01 10^6/uL (3.5-6.1) 11/03/18 07:20 Hgb 12.2 g/dL (14.0-18.0) L 11/03/18 07:20 Hct 35.2 % (42.0-52.0) L 11/03/18 07:20 MCV 87.8 fl (80.0-105.0) 11/03/18 07:20 MCH 30.4 pg (25.0-35.0) 11/03/18 07:20 MCHC 34.7 g/dl (31.0-37.0) 11/03/18 07:20 RDW 13.4 % (11.5-14.5) 11/03/18 07:20 Plt Count 160 10^3/uL (120.0-450.0) 11/03/18 07:20 MPV 10.1 fl (7.0-11.0) 11/03/18 07:20 Neut % (Auto) 69.3 % (50.0-68.0) H 11/03/18 07:20 Lymph % (Auto) 14.2 % (22.0-35.0) L 11/03/18 07:20 [place] % (Auto) 13.6 % (1.0-6.0) H 11/03/18 07:20 Eos % (Auto) 2.5 % (1.5-5.0) 11/03/18 07:20 Baso % (Auto) 0.4 % (0.0-3.0) 11/03/18 07:20 Lymph # (Auto) 0.7 (1.2-3.4) L 11/03/18 07:20 [place] # (Auto) 0.7 (0.1-0.6) H 11/03/18 07:20 Eos # (Auto) 0.1 (0.0-0.7) 11/03/18 07:20 Baso # (Auto) 0.02 K/mm3 (0.0-2.0) 11/03/18 07:20 Absolute Neuts (auto) 3.62 (1.4-6.5) 11/03/18 07:20 PT 12.0 SECONDS (9.4-12.5) 10/30/18 13:00 INR 1.06 10/30/18 13:00 APTT 32.1 Seconds (26.9-38.3) 10/30/18 13:00 Sodium 139 mmol/L (132-148) 11/03/18 07:20 Potassium 3.8 mmol/L (3.6-5.0) 11/03/18 07:20 Chloride 101 mmol/L (98-107) 11/03/18 07:20 Carbon Dioxide 32 mmol/L (21-33) 11/03/18 07:20 Anion Gap 9 (10-20) L 11/03/18 07:20 BUN 11 mg/dL (7-21) 11/03/18 07:20 Creatinine 0.8 mg/dl (0.8-1.5) 11/03/18 07:20 Est GFR ( Amer) > 60 11/03/18 07:20 Est GFR (Non-Af Amer) > 60 11/03/18 07:20 POC Glucose (mg/dL) 277 mg/dL (65-110) H 11/02/18 21:05 Random Glucose 136 mg/dL (70-110) H 11/03/18 07:20 Hemoglobin A1c 7.5 % (4.2-6.5) H 10/31/18 07:30 Calcium 8.7 mg/dL (8.4-10.5) 11/03/18 07:20 Phosphorus 3.1 mg/dL (2.5-4.5) 10/31/18 07:30 Magnesium 1.9 mg/dL (1.7-2.2) 10/31/18 07:30 Total Bilirubin 0.6 mg/dL (0.2-1.3) 11/03/18 07:20 AST 30 U/L (17-59) 11/03/18 07:20 ALT 28 U/L (7-56) 11/03/18 07:20 Alkaline Phosphatase 60 U/L (38-126) 11/03/18 07:20 Lactate Dehydrogenase 562 U/L (333-699) 10/29/18 18:24 Total Creatine Kinase 104 U/L (35-230) 10/29/18 18:24 Troponin I < 0.01 ng/mL 10/29/18 18:24 Total Protein 6.7 g/dL (5.8-8.3) 11/03/18 07:20 Albumin 4.0 g/dL (3.0-4.8) 11/03/18 07:20 Globulin 2.7 gm/dL 11/03/18 07:20 Albumin/Globulin Ratio 1.5 (1.1-1.8) 11/03/18 07:20 Triglycerides 160 mg/dL (35-160) 10/31/18 07:30 Cholesterol 146 mg/dL (130-200) 10/31/18 07:30 LDL Cholesterol Direct 86 mg/dL (0-129) 10/31/18 07:30 HDL Cholesterol 35 mg/dL (29-60) 10/31/18 07:30 Lipase 68 U/L (23-300) 10/29/18 18:24 Free T4 0.76 ng/dL (0.78-2.19) L 10/31/18 07:30 TSH 3rd Generation 0.82 mIU/mL (0.46-4.68) 10/31/18 07:30 Urine Color Light yellow (YELLOW) 10/29/18 19:38 Urine Appearance Clear (CLEAR) 10/29/18 19:38 Urine pH 7.5 (4.7-8.0) 10/29/18 19:38 Ur Specific [place] 1.020 (1.005-1.035) 10/29/18 19:38 Urine Protein 30 mg/dL (<30 mg/dL) H 10/29/18 19:38 Urine Glucose (UA) 100 mg/dL (NEGATIVE) H 10/29/18 19:38 Urine Ketones 15 mg/dL (NEGATIVE) H 10/29/18 19:38 Urine Blood Small (NEGATIVE) H 10/29/18 19:38 Urine Nitrate Negative (NEGATIVE) 10/29/18 19:38 Urine Bilirubin Negative (NEGATIVE) 10/29/18 19:38 Urine Urobilinogen 0.2 E.U./dL (<1 E.U./dL) 10/29/18 19:38 Ur Leukocyte Esterase Negative Erica/uL (NEGATIVE) 10/29/18 19:38 Urine RBC 15 - 20 /hpf (0-2) H 10/29/18 19:38 Urine WBC 5 - 10 /hpf (0-6) H 10/29/18 19:38 Ur Epithelial Cells 6 - 8 /hpf (0-5) H 10/29/18 19:38 - Hospital Course Hospital Course: Pt seen and examined by me. I have reviewed the note of the medical billing associate and I agree with it. I have discussed the assessment and plan with the resident. I have reviewed the medications and the last labs.Pt with L kidney stones. He had a stent placed in the L kidney. Pt will f/u with urology. He has been onASA for CAD. He will be on Flomax. He will f/u with PMD
--- NOTE | 2018-11-03 14:54 | RAD ---
Date of service: 11/02/2018 PROCEDURE: Intraoperative Fluoroscopy. HISTORY: STENT REM. / INSERT. / RETROGRADE PYELO./ LASER LITHOTRIPSY FINDINGS: Fluoroscopic assistance was provided for retrograde pyelography and laser lithotripsy. Please refer to the operative report from LINUS Llamas, , MD DESHAWN. 45.9 sec of fluoro time was utilized with a total cumulative dose of 9.48 mGy.
--- NOTE | 2018-11-03 23:02 | PCM.URO ---
Urology Progress Note - General General: No Complaints, Tolerating Diet - Subjective Abdominal Pain: No Flank Pain: No Nausea: No Vomiting: No Voiding Well: Yes (mild dysuria) Frequency: Yes Stone Passed: No Dsypnea: No Chest Pain: No Fever & Chills: No - Objective Lab Results Last 24 Hours: Laboratory Results - last 24 hr 11/03/18 11/03/18 11/03/18 06:38 07:20 07:20 WBC 5.2 RBC 4.01 Hgb 12.2 L Hct 35.2 L MCV 87.8 MCH 30.4 MCHC 34.7 RDW 13.4 Plt Count 160 MPV 10.1 Neut % (Auto) 69.3 H Lymph % (Auto) 14.2 L [place] % (Auto) 13.6 H Eos % (Auto) 2.5 Baso % (Auto) 0.4 Lymph # (Auto) 0.7 L [place] # (Auto) 0.7 H Eos # (Auto) 0.1 Baso # (Auto) 0.02 Absolute Neuts (auto) 3.62 Sodium 139 Potassium 3.8 Chloride 101 Carbon Dioxide 32 Anion Gap 9 L BUN 11 Creatinine 0.8 Est GFR ( Amer) > 60 Est GFR (Non-Af Amer) > 60 POC Glucose (mg/dL) 129 H Random Glucose 136 H Calcium 8.7 Total Bilirubin 0.6 AST 30 ALT 28 Alkaline Phosphatase 60 Total Protein 6.7 Albumin 4.0 Globulin 2.7 Albumin/Globulin Ratio 1.5 11/03/18 11:06 WBC RBC Hgb Hct MCV MCH MCHC RDW Plt Count MPV Neut % (Auto) Lymph % (Auto) [place] % (Auto) Eos % (Auto) Baso % (Auto) Lymph # (Auto) [place] # (Auto) Eos # (Auto) Baso # (Auto) Absolute Neuts (auto) Sodium Potassium Chloride Carbon Dioxide Anion Gap BUN Creatinine Est GFR ( Amer) Est GFR (Non-Af Amer) POC Glucose (mg/dL) 231 H Random Glucose Calcium Total Bilirubin AST ALT Alkaline Phosphatase Total Protein Albumin Globulin Albumin/Globulin Ratio Intake & Output: Intake & Output 11/03/18 11/03/18 11/04/18 06:59 18:59 06:59 Intake Total 840 Output Total 2024 Balance -1185 Weight 182 lb 6.4 oz Intake: Oral 840 Output: Urine 2024 Urine, Voided 2024 Other: # Bowel Movements 0 Vital Signs: Vital Signs - 24 hr 11/02/18 11/03/18 11/03/18 23:11 07:00 09:57 Temperature 98.5 F 98.7 F Pulse Rate 92 H 60 60 Respiratory 20 18 Rate Blood Pressure 140/88 141/74 140/74 O2 Sat by Pulse 98 96 Oximetry 11/03/18 09:58 Temperature Pulse Rate 60 Respiratory Rate Blood Pressure 140/74 O2 Sat by Pulse Oximetry - Physical Exam Abdominal Exam: Soft, Non-Tender, Non-Distended Back: No CVA Tenderness Genitalia: Without Inflammation - Plan Additional Information: Imp: stable post ureteroscopy/renoscopy and laser lithotripsy. Rec/P: hydration. outpt f/u. AXR. Discussed w pt and nursing staff. YS - Date & Time of Note Date: 11/03/18 Time: 14:30
--- NOTE | 2018-11-08 21:31 | PN ---
DATE: 11/01/2018 Please see history and physical and consultation and operative note. See the plan as listed below. The patient underwent a cystoscopy and stent insertion, he feels much, much better. We discussed options at this point about shockwave lithotripsy versus ureteroscopy and laser lithotripsy. The patient does not want to wait. We asked he is on aspirin, so he has to wait a full week. does not travel, so we are going to bring him to the OR tomorrow for cystoscopy, ureteroscopy, and laser lithotripsy. He is off the Eliquis and we feel comfortable to do ureteroscopy on aspirin therapy. PAST MEDICAL AND SURGICAL HISTORY: No changes. PHYSICAL EXAMINATION: No changes. DIAGNOSES: Urolithiasis, hematuria, diabetes, underlying multiple medical issues, and multiple cardiac issues. PLAN: As follows, a very pleasant 63-year-old with multiple issues. We discussed options. We are going to bring him tomorrow for ureteroscopy, laser lithotripsy, and then further plan to follow. We make arrangements having laser nurse available to take special in [facility]. We will also have availability for flexible scope . Further plans will follow. I explained the patient risks, benefits, and treatment in great detail and then we are going to plan to see and try to take care of him as rapidly as possible, so we are going to make the next date which is tomorrow 11/02/2018. Alex Mata MD
--- NOTE | 2018-11-08 22:24 | PN ---
DATE: 11/02/2018 IMMEDIATE POSTOP NOTE. See the history and physical consultation previous note. The patient now in recovery room resting comfortably, I spoke to the patient. His vital signs are normal limits. We will plan to screen here and status post result in ureteroscopy and lithotripsy. Further plan to follow. He will be discharged home with an indwelling double J-stent and then he will be followed up in the office. Alex Mata MD
--- NOTE | 2018-11-09 09:28 | OP ---
PROCEDURE DATE: 11/02/2018 PREOPERATIVE DIAGNOSES: 1. Urolithiasis, severe renal colic. 2. Hydronephrosis. 3. Impending sepsis, that is now resolved. POSTOPERATIVE DIAGNOSES: 1. Urolithiasis, severe renal colic. 2. Hydronephrosis. 3. Impending sepsis, that is now resolved. PROCEDURES: 1. Cystoscopy, removal of double J stent, ureteroscopy, laser lithotripsy of a gigantic stone, which is almost a full centimeter stone. 2. Ureteroscopy, renoscopy, and laser lithotripsy of the stone both in the kidney and the ureter. 3. Retrograde pyelogram and insertion of a double J stent. COMPLICATIONS: There were no complications. ESTIMATED BLOOD LOSS: Less than 10 mL. We really got the stone well. Have it shattered is on the chart. INDICATIONS: See history and physical for further details and consultation. I did a consult 10/30/2018 and on 10/31/2018 he went to the OR for almost immediate treatment. At that time, the patient wanted to know if we could do more with the stone. I explained that the first thing to do on that particular day on 10/31/2018 happened to be Thursday is just drain the kidney. He is diabetic. He has multiple medical issues. We actually wanted to do it first thing in the morning. We actually waited for cardiac clearance. He previously had stenting. See all previously dictated notes. After discussing all these options with the patient, he was seen by Dr. Londono during hospital stay at the request of his medical doctor. His medical doctor is Dr. Padilla who called me. He had diabetes, low-grade fever, and obstructing stone, so we wanted to bring him to the OR as immediate as possible. We waited for cardiology clearance. Immediately afterwards the patient got better. We then discussed options. I discussed going out [facility] to do [facility] lithotripsy; however, the patient is on aspirin. We need to do wait a week. He happened to stop his Eliquis. He has a history of cardiac stent by Dr. Kennedy some years back already. He has a defibrillator and pacemaker. Multiple issues for the patient. Although, he is currently not experiencing any chest pain, he is not symptomatic and after the procedure he felt much better from his back. We discussed options. We wanted to see what we can do, so we discussed options and we brought him here now for the above listed procedure. He has been off the Eliquis, but he is trying to get back so I added on it. See the plans listed below and he is here now. I explained to the patient the risks, benefits and also discussed the options what we did we is the ureteroscopy and laser lithotripsy and renoscopy. I discussed that sometimes the stone proximal migration. I discussed with him that with a shockwave lithotripsy this should not happen. Required some waiting. After all those options, he stayed in the hospital and we did the above procedure. Now, want to mention that it went extremely well. We were able to break the stone tremendously, slowly diligently carefully and as rapidly as possible the same time given his overall condition. It went well. At the termination of the procedure even after we passed the stone with the rigid ureteroscope and went up to the kidney, we put a second wire and we went all the way with flexible scope. I do mention that at this point I am dictating it now because I am going through the medical records and there is no dictation but, as I am doing it I am recording that was done, perhaps it got caught when I was dictating with the Bluetooth. In either way, we were doing it now. DESCRIPTION OF PROCEDURE: After obtaining informed consent, the patient was placed on the table. Routine monitors were placed. Time-out was called to confirm patient and positioning. We also gave him antibiotic prophylaxis. He is already on antibiotics. We gave further antibiotic prophylaxis. Now, we continued with our procedure in the following fashion. The patient is in lithotomy position. Antibiotic prophylaxis was used antibiotics. Routine monitors placed. Time-out was called to confirm patient positioning. We introduced the cystoscope via urethra. No strictures from here and for a 53-year-old it is fairly occlusive. We identified the stent and remove it and put the wire up to the kidney. We now used the wire. We run adjacent to the wire. We got all the way up to the stones fairly easily . Just in few days, the ureters nicely dilated. We now identified the stone, see the picture on the chart. We now put the energy settings at about 3 MHz and at about almost 2 joules of energy, we used the Holmium YAG imaging laser. We provided ureteroscopy and laser lithotripsy. We were slowly diligent ____ entire procedure was done with fluoroscopy and also with the camera so that the team can see it and help me. I have the water on high pump, but I do it that I control slowly and I worked at the edge of the stone but does not have proximal migration initially. Again, I am planning that it did eventually going to and I have the flexible ureteroscope to do the renoscopy at that time. Even subsequently with x-ray study known fluoroscopically difficult to identify the stone (both either a radiolucent stone or it is a non-extremely dense radiopaque stone meaning there may be some calcium within it, but there may be some component of it that uric acid mostly with the stone shows. In a way we go slowly, diligently and carefully to break the stone up. At some point I see a little bit of the fragment loading up. So, once I worked on much what I can on the bulk of the stone, which has been just the renal pelvic area. The remainder of the stone that go more proximal, I put a second wire through my scope for the second wire and I put a one can see the fluoroscopic images on the upper pole and on the lower pole and all over and wherever I see the stone fragments we lasered that. Most of them happened to be done upper pole luckily. We . We fragment whatever we can nicely. I now put the second wire back up to the kidney. I second wire, put the stent over the second wire. This is pick a newer wire, and it is more fresh and I actually deliberately put it. I can watch where it has been placed by the ureteroscope. Once I confirmed my position, we emptied the bladder. The patient tolerated without complications. Given his history, the fact that he is septic, and the fact that he had multiple works and a tremendous amount of work on him, I did not feel comfortable to leave him with the stent with the string that he would remove. There could be a lot of stones passing, so we left him with the stent with no dangle. We plan to give it a chance to heal and then we will try to remove it just in the office, we do not need more anesthesia. Further plans we will follow. The patient felt much better. I spoke with the patient subsequently. Alex Mata MD
--- NOTE | 2018-11-09 09:40 | PN ---
DATE: 10/31/2018 IMMEDIATE POSTOPERATIVE NOTE See the consultation note and the operative note. SUBJECTIVE: The patient is in the recovery room in stable condition. He is status post cystoscopy and stent insertion. Vital signs remain stable. He is in for severe renal colic, hematuria, impending sepsis, and urolithiasis. His postop is in the same condition. He is feeling much better. Less pain. The plan is to stream the urine and then bring the patient back either for ureteroscopy with lithotripsy or preferably to bring the patient for shock wave lithotripsy. We are going to see how the patient does clinically. We discussed with the patient risks, benefits, and treatment alternatives with the patient; but of now, he says he feels better and then we will discuss further plans. Making addendum to this note, I asked that we discuss and monitor the patient. Most likely, we are going to end up doing a ureteroscopy with laser lithotripsy here in this hospital. Alex Mata MD
== END 2018-11-03 17:17 | disposition home or self-care (01) | DRG 661 ==
LOC: ED 17:19 → ERH 19:57 → 5RSO 22:18
PROVIDERS: ADMIT Internal Medicine Nephrology; ATTEND Internal Medicine Nephrology
PROC: BT1F1ZZ Fluoroscopy of Left Kidney, Ureter and Bladder using Low Osmolar Contrast (ICD-10-PCS; 2018-10-31)
PROC: 0T778DZ Dilation of Left Ureter with Intraluminal Device, Via Natural or Artificial Opening Endoscopic (ICD-10-PCS; principal; 2018-10-31 12:14)
PROC: 0TC78ZZ Extirpation of Matter from Left Ureter, Via Natural or Artificial Opening Endoscopic (ICD-10-PCS; 2018-11-02)
PROC: 0T778DZ Dilation of Left Ureter with Intraluminal Device, Via Natural or Artificial Opening Endoscopic (ICD-10-PCS; 2018-11-02)
PROC: 0TP98DZ Removal of Intraluminal Device from Ureter, Via Natural or Artificial Opening Endoscopic (ICD-10-PCS; 2018-11-02)
PROC: BT1F1ZZ Fluoroscopy of Left Kidney, Ureter and Bladder using Low Osmolar Contrast (ICD-10-PCS; 2018-11-02)
DX: N13.2 Hydronephrosis with renal and ureteral calculous obstruction (principal); I25.10 Atherosclerotic heart disease of native coronary artery without angina pectoris; I10 Essential (primary) hypertension; E11.9 Type 2 diabetes mellitus without complications; I48.91 Unspecified atrial fibrillation; N40.0 Benign prostatic hyperplasia without lower urinary tract symptoms; F32.9 Major depressive disorder, single episode, unspecified; F41.9 Anxiety disorder, unspecified; E78.5 Hyperlipidemia, unspecified; Z95.5 Presence of coronary angioplasty implant and graft; Z95.810 Presence of automatic (implantable) cardiac defibrillator; Z87.891 Personal history of nicotine dependence